=== PATIENT | male | born 1945 | race Caucasian/White ===

== ENCOUNTER → 2016-06-03 | Outpatient (CLI) | payer MEDICARE ==
[2016-05-26 12:47] VITALS: BP 163/82
[~2016-06-03] MED LIST: ASPI-482 PO; INSU100V10 IJ; LOSA50TA6 PO; LOVA20TA2 PO; METF10002 PO; SITA100T PO; TAMS0.4C2 PO
== END | disposition home or self-care (01) ==
LOC: PMGWOUND 08:02
PROVIDERS: ATTEND Emergency Medicine Undersea and Hyperbaric Medicine
DX: E11.621 Type 2 diabetes mellitus with foot ulcer (principal); L97.411 Non-pressure chronic ulcer of right heel and midfoot limited to breakdown of skin; F41.9 Anxiety disorder, unspecified; I10 Essential (primary) hypertension
CPT/HCPCS: 11042

== ENCOUNTER → 2016-06-10 | Outpatient (CLI) | payer MEDICARE ==
[2016-05-26 12:47] VITALS: BP 163/82
== END | disposition home or self-care (01) ==
LOC: PMGWOUND 08:43
PROVIDERS: ATTEND Emergency Medicine Undersea and Hyperbaric Medicine
DX: E11.621 Type 2 diabetes mellitus with foot ulcer (principal); L97.511 Non-pressure chronic ulcer of other part of right foot limited to breakdown of skin; L97.411 Non-pressure chronic ulcer of right heel and midfoot limited to breakdown of skin; F41.9 Anxiety disorder, unspecified; I10 Essential (primary) hypertension
CPT/HCPCS: 11042

== ENCOUNTER → 2016-06-17 | Outpatient (CLI) | payer MEDICARE ==
[2016-05-26 12:47] VITALS: BP 163/82
== END | disposition home or self-care (01) ==
LOC: PMGWOUND 08:49
PROVIDERS: ATTEND Emergency Medicine Undersea and Hyperbaric Medicine
DX: E11.621 Type 2 diabetes mellitus with foot ulcer (principal); L97.411 Non-pressure chronic ulcer of right heel and midfoot limited to breakdown of skin; F41.9 Anxiety disorder, unspecified; I10 Essential (primary) hypertension
CPT/HCPCS: 11042

== ENCOUNTER → 2016-06-24 | Outpatient (CLI) | payer BC, MEDICARE ==
[2016-05-26 12:47] VITALS: BP 163/82
== END | disposition home or self-care (01) ==
LOC: PMGWOUND 08:32
PROVIDERS: ATTEND Preventive Medicine Undersea and Hyperbaric Medicine
DX: E11.621 Type 2 diabetes mellitus with foot ulcer (principal); L97.413 Non-pressure chronic ulcer of right heel and midfoot with necrosis of muscle; I10 Essential (primary) hypertension; F41.9 Anxiety disorder, unspecified
CPT/HCPCS: 97597

== ENCOUNTER → 2016-07-01 | Outpatient (CLI) | payer BC ==
[2016-05-26 12:47] VITALS: BP 163/82
== END | disposition home or self-care (01) ==
LOC: PMGWOUND 08:50
PROVIDERS: ATTEND Emergency Medicine Undersea and Hyperbaric Medicine
DX: E11.621 Type 2 diabetes mellitus with foot ulcer (principal); L97.413 Non-pressure chronic ulcer of right heel and midfoot with necrosis of muscle; I10 Essential (primary) hypertension; F41.9 Anxiety disorder, unspecified
CPT/HCPCS: 11042

== ENCOUNTER → 2016-07-08 | Outpatient (CLI) | payer BC ==
[2016-05-26 12:47] VITALS: BP 163/82
== END | disposition home or self-care (01) ==
LOC: PMGWOUND 08:54
PROVIDERS: ATTEND Emergency Medicine Undersea and Hyperbaric Medicine
DX: E11.621 Type 2 diabetes mellitus with foot ulcer (principal); L97.413 Non-pressure chronic ulcer of right heel and midfoot with necrosis of muscle; I10 Essential (primary) hypertension; F41.9 Anxiety disorder, unspecified
CPT/HCPCS: 11042

== ENCOUNTER → 2016-07-15 | Outpatient (CLI) | payer BC ==
[2016-05-26 12:47] VITALS: BP 163/82
== END | disposition home or self-care (01) ==
LOC: PMGWOUND 08:47
PROVIDERS: ATTEND Emergency Medicine Undersea and Hyperbaric Medicine
DX: E11.621 Type 2 diabetes mellitus with foot ulcer (principal); L97.411 Non-pressure chronic ulcer of right heel and midfoot limited to breakdown of skin; F41.9 Anxiety disorder, unspecified; I10 Essential (primary) hypertension
CPT/HCPCS: 11042

== ENCOUNTER → 2016-07-22 | Outpatient (CLI) | payer BC ==
[2016-05-26 12:47] VITALS: BP 163/82
[~2016-07-22] MED LIST changes: +METF-620 PO; -METF10002 PO
== END | disposition home or self-care (01) ==
LOC: PMGWOUND 08:48
PROVIDERS: ATTEND Emergency Medicine Undersea and Hyperbaric Medicine
DX: E11.621 Type 2 diabetes mellitus with foot ulcer (principal); L97.511 Non-pressure chronic ulcer of other part of right foot limited to breakdown of skin; I10 Essential (primary) hypertension; F41.9 Anxiety disorder, unspecified
CPT/HCPCS: 11042

== ENCOUNTER → 2016-07-29 | Outpatient (CLI) | payer BC ==
[2016-05-26 12:47] VITALS: BP 163/82
== END | disposition home or self-care (01) ==
LOC: PMGWOUND 08:56
PROVIDERS: ATTEND Emergency Medicine Undersea and Hyperbaric Medicine
DX: E11.621 Type 2 diabetes mellitus with foot ulcer (principal); L97.413 Non-pressure chronic ulcer of right heel and midfoot with necrosis of muscle; F41.9 Anxiety disorder, unspecified; I10 Essential (primary) hypertension
CPT/HCPCS: 11042

== ENCOUNTER → 2016-08-05 | Outpatient (CLI) | payer BC, OTHER ==
[2016-05-26 12:47] VITALS: BP 163/82
== END | disposition home or self-care (01) ==
LOC: PMGWOUND 08:47
PROVIDERS: ATTEND Emergency Medicine Undersea and Hyperbaric Medicine
DX: E11.621 Type 2 diabetes mellitus with foot ulcer (principal); L97.413 Non-pressure chronic ulcer of right heel and midfoot with necrosis of muscle; F41.9 Anxiety disorder, unspecified; I10 Essential (primary) hypertension
CPT/HCPCS: 11042

== ENCOUNTER → 2016-08-11 | Outpatient (CLI) | payer BC, OTHER ==
[2016-05-26 12:47] VITALS: BP 163/82
== END | disposition home or self-care (01) ==
LOC: PMGWOUND 08:48
PROVIDERS: ATTEND Preventive Medicine Undersea and Hyperbaric Medicine
DX: E11.621 Type 2 diabetes mellitus with foot ulcer (principal); L97.413 Non-pressure chronic ulcer of right heel and midfoot with necrosis of muscle; F41.9 Anxiety disorder, unspecified; I10 Essential (primary) hypertension
CPT/HCPCS: 97597

== ENCOUNTER → 2016-08-18 | Outpatient (CLI) | payer BC, OTHER ==
[2016-05-26 12:47] VITALS: BP 163/82
== END | disposition home or self-care (01) ==
LOC: PMGWOUND 08:54
PROVIDERS: ATTEND Preventive Medicine Undersea and Hyperbaric Medicine
DX: E11.621 Type 2 diabetes mellitus with foot ulcer (principal); L97.413 Non-pressure chronic ulcer of right heel and midfoot with necrosis of muscle; I10 Essential (primary) hypertension; F41.9 Anxiety disorder, unspecified
CPT/HCPCS: 97597

== ENCOUNTER → 2016-08-25 | Outpatient (CLI) | payer BC, OTHER ==
[2016-05-26 12:47] VITALS: BP 163/82
[~2016-08-25] MED LIST changes: -INSU100V10 IJ; +INSU100V11 IJ
== END | disposition home or self-care (01) ==
LOC: PMGWOUND 07:54
PROVIDERS: ATTEND Preventive Medicine Undersea and Hyperbaric Medicine
DX: E11.621 Type 2 diabetes mellitus with foot ulcer (principal); L97.413 Non-pressure chronic ulcer of right heel and midfoot with necrosis of muscle; F41.9 Anxiety disorder, unspecified; I10 Essential (primary) hypertension
CPT/HCPCS: 97597

== ENCOUNTER → 2016-09-01 | Outpatient (CLI) | payer BC, OTHER ==
[2016-05-26 12:47] VITALS: BP 163/82
== END | disposition home or self-care (01) ==
LOC: PMGWOUND 08:17
PROVIDERS: ATTEND Preventive Medicine Undersea and Hyperbaric Medicine
DX: E11.621 Type 2 diabetes mellitus with foot ulcer (principal); L97.413 Non-pressure chronic ulcer of right heel and midfoot with necrosis of muscle; I10 Essential (primary) hypertension; F41.9 Anxiety disorder, unspecified
CPT/HCPCS: 97597

== ENCOUNTER → 2016-09-08 | Outpatient (CLI) | payer BC, OTHER ==
[2016-05-26 12:47] VITALS: BP 163/82
== END | disposition home or self-care (01) ==
LOC: PMGWOUND 08:22
PROVIDERS: ATTEND Preventive Medicine Undersea and Hyperbaric Medicine
DX: E11.621 Type 2 diabetes mellitus with foot ulcer (principal); L97.511 Non-pressure chronic ulcer of other part of right foot limited to breakdown of skin; F41.9 Anxiety disorder, unspecified; I10 Essential (primary) hypertension
CPT/HCPCS: 97597

== ENCOUNTER → 2016-09-15 | Outpatient (CLI) | payer BC, OTHER ==
[2016-05-26 12:47] VITALS: BP 163/82
== END | disposition home or self-care (01) ==
LOC: PMGWOUND 08:18
PROVIDERS: ATTEND Preventive Medicine Undersea and Hyperbaric Medicine
DX: E11.621 Type 2 diabetes mellitus with foot ulcer (principal); L97.413 Non-pressure chronic ulcer of right heel and midfoot with necrosis of muscle; F41.9 Anxiety disorder, unspecified; I10 Essential (primary) hypertension
CPT/HCPCS: 97597

== ENCOUNTER → 2016-09-29 | Outpatient (CLI) | payer BC, OTHER ==
[2016-05-26 12:47] VITALS: BP 163/82
[~2016-09-29] MED LIST changes: +ONDA4TAB10 SL; +OXYC-323 PO
== END | disposition home or self-care (01) ==
LOC: PMGWOUND 07:44
PROVIDERS: ATTEND Preventive Medicine Undersea and Hyperbaric Medicine
DX: E11.621 Type 2 diabetes mellitus with foot ulcer (principal); L97.413 Non-pressure chronic ulcer of right heel and midfoot with necrosis of muscle; I10 Essential (primary) hypertension; F41.9 Anxiety disorder, unspecified
CPT/HCPCS: 97597

== ENCOUNTER 2016-09-30 17:37 | Inpatient (IN) | payer BC, OTHER ==
[~2016-09-30] VITALS: Ht 167.6 cm; Wt 108.9 kg
[~2016-09-30 17:37] MED LIST changes: -ONDA4TAB10 SL; -OXYC-323 PO
[2016-09-30] MEDS ORDERED: HYDROmorphone 2 MG/ML VIAL IV ONE ×2 (18:15→19:45)
[2016-09-30] MEDS ORDERED: ONDANSETRON PF 4 MG/2 ML VIAL. IV ONE ×2 (18:15→21:45)
[2016-09-30] MEDS ORDERED: IV NORMAL SALINE 500ML BAG 500 ML IV ONE (18:15)
--- NOTE | 2016-09-30 18:20 | PHYS DOC ---
Past Medical History Past Medical History: Diabetes-Type II, High Cholesterol, Hypertension Past Surgical History: Other Additional Past Surgical Histo: R foot Alcohol Use: None Drug Use: None Adult General Chief Complaint Chief Complaint: ABDOMINAL PAIN HPI HPI Patient is a 70 year old male who presents with except for history of upper abdominal pain across his abdomen and perhaps right greater than left, moderate to severe, vomiting 3 clear, no hematemesis, no diarrhea denies chest pain or shortness of breath no alcohol or NSAID use. No prior abdominal surgical history. Insulin-dependent diabetic. Review of Systems Review of Systems Constitutional: Denies fever or chills [] Eyes: Denies change in visual acuity, redness, or eye pain [] HENT: Denies nasal congestion or sore throat [] Respiratory: Denies cough or shortness of breath [] Cardiovascular: No additional information not addressed in HPI [] GI: Denies abdominal pain, nausea, vomiting, bloody stools or diarrhea [] : Denies dysuria or hematuria [] Musculoskeletal: Denies back pain or joint pain [] Integument: Denies rash or skin lesions [] Neurologic: Denies headache, focal weakness or sensory changes [] Endocrine: Denies polyuria or polydipsia [] Current Medications Current Medications Current Medications Medications (Trade) Dose Ordered Sig/Ben Start Time Stop Time Status Last Admin Dose Admin Famotidine (Pepcid) 20 mg 1X ONCE 09/30/16 22:15 09/30/16 22:16 DC Hydromorphone HCl (Dilaudid) 0.5 mg 1X ONCE 09/30/16 19:45 09/30/16 19:46 DC 09/30/16 19:44 0.5 MG Info (Do NOT chart on this entry -- for MONITORING) 1 each PRN DAILY PRN 09/30/16 19:00 10/02/16 18:59 Iohexol (Omnipaque 300 Mg/ml) 75 ml 1X ONCE 09/30/16 19:00 09/30/16 19:01 DC 09/30/16 18:57 75 ML Morphine Sulfate 4 mg PRN Q2HR PRN 09/30/16 22:15 10/01/16 22:14 Ondansetron HCl (Zofran) 4 mg PRN Q8HRS PRN 09/30/16 22:15 10/01/16 22:14 Sodium Chloride 1,000 ml @ 150 mls/hr Q6H40M 09/30/16 22:00 10/01/16 21:59 Allergies Allergies Allergies Coded Allergies Type Severity Reaction Last Updated Verified No Known Drug Allergies 12/29/15 No Physical Exam Physical Exam Constitutional: Well developed, well nourished, no acute distress, non-toxic appearance. [] HENT: Normocephalic, atraumatic, bilateral external ears normal, oropharynx moist, no oral exudates, nose normal. [] Eyes: PERRLA, EOMI, conjunctiva normal, no discharge. [] Neck: Normal range of motion, no tenderness, supple, no stridor. [] Cardiovascular:Heart rate regular rhythm, no murmur [] Lungs & Thorax: Bilateral breath sounds clear to auscultation [] Abdomen: Bowel sounds normal, soft, moderate tenderness across upper abdomen, no masses, no pulsatile masses. [] Skin: Warm, dry, no erythema, no rash. [] Back: No tenderness, no CVA tenderness. [] Extremities: No tenderness, no cyanosis, no clubbing, ROM intact, no edema. [] Neurologic: Alert and oriented X 3, normal motor function, normal sensory function, no focal deficits noted. [] Psychologic: Affect normal, judgement normal, mood normal. [] Current Patient Data Vital Signs Vital Signs Date Time Temp Pulse Resp B/P (MAP) Pulse Ox O2 Delivery O2 Flow Rate FiO2 09/30/16 20:30 66 19 99 09/30/16 19:44 Room Air 09/30/16 19:30 166/87 (113) 09/30/16 18:00 97.8 97.8 Lab Values Laboratory Tests Test 09/30/16 18:32 09/30/16 18:35 09/30/16 19:54 White Blood Count 10.9 x10^3/uL (4.0-11.0) Red Blood Count 3.87 x10^6/uL (4.30-5.70) L Hemoglobin 11.4 g/dL (13.0-17.5) L Hematocrit 33.7 % (39.0-53.0) L Mean Corpuscular Volume 87 fL (79-100) Mean Corpuscular Hemoglobin 29 pg (25-35) Mean Corpuscular Hemoglobin Concent 34 g/dL (31-37) Red Cell Distribution Width 14.4 % (11.5-14.5) Platelet Count 171 x10^3/uL (140-400) Neutrophils (%) (Auto) 84 % (31-73) H Lymphocytes (%) (Auto) 11 % (24-48) L Monocytes (%) (Auto) 4 % (0-9) Eosinophils (%) (Auto) 1 % (0-3) Basophils (%) (Auto) 1 % (0-3) Neutrophils # (Auto) 9.1 x10^3uL (1.8-7.7) H Lymphocytes # (Auto) 1.2 x10^3/uL (1.0-4.8) Monocytes # (Auto) 0.5 x10^3/uL (0.0-1.1) Eosinophils # (Auto) 0.1 x10^3/uL (0.0-0.7) Basophils # (Auto) 0.1 x10^3/uL (0.0-0.2) Sodium Level 142 mmol/L (136-145) Potassium Level 4.5 mmol/L (3.5-5.1) Chloride Level 106 mmol/L (98-107) Carbon Dioxide Level 24 mmol/L (21-32) Anion Gap 12 (6-14) 15 mmol/L (6-14) H Blood Urea Nitrogen 27 mg/dL (8-26) H Creatinine 1.1 mg/dL (0.7-1.3) Estimated GFR (Cockcroft-Gault) 66.2 BUN/Creatinine Ratio 25 (6-20) H Glucose Level 105 mg/dL (70-99) H 99 mg/dL (70-99) Calcium Level 9.6 mg/dL (8.5-10.1) Total Bilirubin 0.5 mg/dL (0.2-1.0) Aspartate Amino Transferase (AST) 40 U/L (15-37) H Alanine Aminotransferase (ALT) 43 U/L (16-63) Alkaline Phosphatase 89 U/L (46-116) Troponin I Quantitative < 0.017 ng/mL (0.000-0.055) Total Protein 7.5 g/dL (6.4-8.2) Albumin 3.8 g/dL (3.4-5.0) Albumin/Globulin Ratio 1.0 (1.0-1.7) Lipase 262 U/L (73-393) POC Hemoglobin 11.9 g/dL (14-18) L POC Hematocrit 35 % (37-52) L POC Sodium 141 mmol/L (135-145) POC Potassium 4.2 mmol/L (3.5-5.0) POC Chloride 108 mmol/L (98-110) POC Total CO2 24 mmol/L (23-32) POC Blood Urea Nitrogen 26 mg/dL (8-26) POC Creatinine 1.2 mg/dL (0.5-1.4) POC Ionized Calcium (Geraldine) 1.24 mmol/L (1.13-1.32) Urine Collection Type Unknown Urine Color Yellow Urine Clarity Turbid Urine pH 5.5 Urine Specific [place] >=1.030 Urine Protein Negative mg/dL (NEG-TRACE) Urine Glucose (UA) Negative mg/dL (NEG) Urine Ketones (Stick) Negative mg/dL (NEG) Urine Blood Moderate (NEG) Urine Nitrite Negative (NEG) Urine Bilirubin Negative (NEG) Urine Urobilinogen Dipstick 0.2 mg/dL (0.2 mg/dL) Urine Leukocyte Esterase Large (NEG) Urine RBC Rare /HPF (0-2) Urine WBC Tntc /HPF (0-4) Urine Bacteria Many /HPF (0-FEW) Urine Mucus Slight /LPF Laboratory Tests 09/30/16 18:32 Laboratory Tests 09/30/16 18:32 09/30/16 18:35 EKG EKG Normal sinus rhythm rate of [address] segment elevation QTC normal mild T-wave inversion in V1 and V2 interpreted by me [] Radiology/Procedures Radiology/Procedures Chest x-ray no acute disease process my interpretation my review. CT abdomen and pelvis positive for gallstones. Per radiology report Ultrasound gallbladder [cholelithiasis no gallbladder wall thickening per radiology report] Course & Med Decision Making Course & Med Decision Making Pertinent Labs and Imaging studies reviewed. (See chart for details) EKG, labs, CT scan abdomen and pelvis, chest x-ray and symptomatic treatment. CT scan and ultrasound showed cholelithiasis no obstruction no wall thickening. Reexam at 8:40 PM patient feels improved I've given him the option to be admitted for surgical consultation and cholecystectomy tomorrow versus following up with his primary care physician in getting an outpatient referral and is preferring to go home. Given him return precautions regarding fever, intractable abdominal pain and jaundice. [ 9:25 PM the patient thought he could manage at home however just prior to leaving the room in the ED started having recurrence of the pain and started throwing up. Therefore we will admit to the hospitalist I will consult the unassigned general surgeon prior to the admission. 9:30 PM: Discussed case with general surgery on-call Dr. Atkins asked that the patient be nothing by mouth and he'll evaluate. 9:50 PM: Discussed case with hospitalist on-call Dr. Ac who agrees to admit the patient. ] Dragon Disclaimer Dragon Disclaimer This electronic medical record was generated, in whole or in part, using a voice recognition dictation system. Departure Departure Impression: Primary Impression: Symptomatic cholelithiasis Additional Impressions: Intractable upper abdominal pain Intractable vomiting with nausea Disposition: ADMITTED INPATIENT Admitting Physician: Parveen Early Condition: IMPROVED Referrals: MICHA CASTAÑEDA (PCP) Patient Instructions: Biliary Colic Scripts Ondansetron (ZOFRAN ODT) 4 Mg Tab.rapdis 1 TAB SL Q8HRS, #8 TAB Prov: CB TRAN MD 09/30/16 Oxycodone/Apap 5-325 (PERCOCET 5-325 MG TABLET) 1 Each Tablet 1 TAB PO PRN Q6HRS Y for PAIN for 7 Days, #20 TAB 0 Refills Prov: CB TRAN MD 09/30/16 Problem Qualifiers CB TRAN MD Sep 30, 2016 18:20
[2016-09-30 18:39] LABS: POTASSIUM ISTAT 4.2 mmol/L (3.5-5.0)
[2016-09-30 18:40] LABS: BASO # 0.1 x10^3/uL (0.0-0.2); BASO % 1 % (0-3); EOS % 1 % (0-3); HEMATOCRIT 33.7 % (39.0-53.0); HEMOGLOBIN 11.4 g/dL (13.0-17.5); LYMPH # 1.2 x10^3/uL (1.0-4.8); LYMPH % 11 % (24-48); MEAN CORPUSCULAR HEMOGLOBIN 29 pg (25-35); MEAN CORPUSCULAR HGB CONC 34 g/dL (31-37); MEAN CORPUSCULAR VOLUME 87 fL (79-100); MONO % 4 % (0-9); NEUT % 84 % (31-73); PLATELET COUNT 171 x10^3/uL (140-400); RED BLOOD COUNT 3.87 x10^6/uL (4.30-5.70); RED CELL DISTRIBUTION WIDTH 14.4 % (11.5-14.5); WHITE BLOOD COUNT 10.9 x10^3/uL (4.0-11.0)
[2016-09-30 18:52] LABS: CALCIUM 9.6 mg/dL (8.5-10.1); CREATININE 1.1 mg/dL (0.7-1.3); GFR 66.2; POTASSIUM 4.5 mmol/L (3.5-5.1)
[2016-09-30 18:57] LABS: ALBUMIN 3.8 g/dL (3.4-5.0); TOTAL BILIRUBIN 0.5 mg/dL (0.2-1.0); TOTAL PROTEIN 7.5 g/dL (6.4-8.2)
[2016-09-30] MEDS ORDERED: IOHEXOL 300 MG/ML 75 ML VIAL IV ONE (19:00)
[2016-09-30] MEDS ORDERED: CONTRAST GIVEN MC PRN (19:00)
--- NOTE | 2016-09-30 19:49 | RAD ---
CT ABDOMEN/PELVIS Indication: sudden onset severe upper abd pain today, [id number] 75ml, prior sent Technique: Multiple contiguous axial images were obtained through the abdomen and pelvis after administration of intravenous iodinated contrast. Coronal and sagittal reformations were created. PQRS STATEMENT One or more of the following in the visualized dose reduction techniques were utilized for this study: 1. Automatic exposure control, 2. Adjustment of the mA and/or kV according to patient size, 3. Use of iterative reconstruction technique Comparison: CT abdomen and pelvis from March 23, 2011 Findings: The heart size is normal. The lung bases are clear. The liver is normal in size with no focal lesion identified. The gallbladder is nondistended and demonstrates some layering gallstones. The pancreas, spleen, and adrenal glands are within normal limits. The kidneys are unremarkable apart from bilateral cortical cysts. The portal vein and SMV are patent. The abdominal aorta is normal in caliber. There is no abdominopelvic ascites or adenopathy. The bowel loops are normal in caliber. The appendix is normal. The urinary bladder is unremarkable. No destructive osseus lesions are identified. Impression: No abdominopelvic ascites or inflammatory mass. Cholelithiasis. Electronically signed by: Delgado Carney MD (09/30/2016 7:46 PM) [facility]
[2016-09-30 19:58] LABS: BILIRUBIN,URINE NEGATIVE (NEG); GLUCOSE,URINE NEGATIVE (NEG); NITRITE,URINE NEGATIVE (NEG); PH,URINE 5.5; PROTEIN,URINE NEGATIVE (NEG-TRACE); UROBILINOGEN,URINE 0.2 mg/dL (0.2 mg/dL)
[2016-09-30 20:07] LABS: BACTERIA,URINE MANY /HPF (0-FEW); RBC,URINE RARE /HPF (0-2); WBC,URINE TNTC /HPF (0-4)
--- NOTE | 2016-09-30 20:32 | RAD ---
Exam: Abdomen ultrasound Indication: pt c/o ruq pain, n/v x 6 hrs< Technique: Multiple realtime grayscale sonographic images were obtained over the abdomen. Static images were submitted for interpretation. Findings: The pancreas is poorly visualized. The IVC is patent. The liver is normal in size measuring 18.2cm. There is a normal hepatic echotexture. No focal lesions are identified. The gallbladder is nondistended and contains cholelithiasis. There is no wall thickening, or pericholecystic fluid. The common bile duct is within normal limits measuring 3 mm in diameter. The Right kidney is normal in size measuring 11.7 x 6.2 x 6.5cm. There is no evidence for mass, nephrolithiasis, or hydronephrosis. No ascites is identified Impression: Cholelithiasis with no evidence for acute cholecystitis. Electronically signed by: Delgado Carney MD (09/30/2016 8:29 PM) [facility]
[2016-09-30] MEDS ORDERED: ONDA4TAB10 SL (20:53)
[2016-09-30] MEDS ORDERED: OXYC-323 PO (20:53)
[2016-09-30] MEDS ORDERED: ONDANSETRON PF 4 MG/2 ML VIAL. IV PRN (22:15)
[2016-09-30] MEDS ORDERED: FAMOTIDINE 20 MG/2 ML VIAL IVP ONE (22:15)
[2016-09-30] MEDS: IV NORMAL SALINE 1000ML BAG 1,000 ML IV SCH (23:24)
[2016-10-01] VITALS (8 sets, daily range): BP systolic 134–164; BP diastolic 58–80
[2016-10-01] MEDS: MORPHINE SULFATE 4 MG/ML DISP.SYRIN. IV PRN ×2 (00:08→03:58)
--- NOTE | 2016-10-01 00:37 | ACF ---
Admission Forms Criteria ABDOMINAL PAIN Clinical Indications for Admission to Inpatient Care (Place 'X' for any and all applicable criteria): Admission is indicated for ANY ONE of the following(1)(2)(3)(4)(5): [X]I. Inpatient admission required rather than observation care (Also use Abdominal Pain: Observation Care, as appropriate) because of ANY ONE of the following: [X]a) Severe pain requiring acute inpatient management [ ]b) Identification of etiology/finding that requires inpatient care (eg, aortic dissection, free air) [ ]c) Absent bowel sounds with complete ileus(6) [ ]d) Suspected toxic megacolon [ ]e) Severe electrolyte abnormalities requiring inpatient care [ ]f) High fever or infection requiring inpatient admission as indicated by ANY ONE of following(7)(8): [ ] i) Appropriate outpatient or observational care antimicrobial treatment unavailable, not effective, or not feasible [ ] ii) Documented bacteremia [ ] iii) Temperature > 104.9 degrees F (oral) [ ] iv) T >103.1 F (oral) or < 96.8 F(rectal) that does not respond to all emergency treatment measures [ ]g) Signs of intestinal obstruction [B] [ ]h) Hemodynamic instability [ ]i) IV fluid to replace significant ongoing losses (greater than 3 L/m2 per day) (12)(13) [ ]j) Percutaneous or open drainage (eg, abscess, biliary tract ) procedures [ ]k) Parenteral nutrition regimen that must be implemented on inpatient basis [ ]l) Other condition,treatment or monitoring requiring inpatient admission. [ ]II. Peritoneal signs present [ ]III. Surgery needed that cannot be performed on an ambulatory basis. [ ]IV. Evaluation requires patient to not eat or drink for extended period ( eg, more than 24 hours). [ ]V. Contraindications and/or Inappropriate clinical situations for Observational Care in patients with abdominal pain, when ANY ONE of the following is required: [ ]a) Thorough evaluation is required to prevent catastrophic events due to delays in diagnosing (e.g.Mesenteric ischemia) 1,3 [ ]b) Patient with severe pathology or with chronic symptoms unlikely to improve in the ED stay (3) [ ]. General contraindications and/or Inappropriate clinical situations for Observational Care in patients with abdominal pain, when ANY ONE of the following is required: [ ]a) Prediction of prolongation of LOS based on ANY ONE of the following may be considered as a contraindication for observational care 2, 3, 4, 5, 6, 7, 8, 9, 10, 11 [ ]i) Age > 65 yrs. [ ]ii) Patient arriving by ambulance [ ]iii) Patient with high acuity [ ]iv) Patient requiring vital sign monitoring [ ]v) Patient on IV medication [ ]b) Systolic blood pressures 180mmHg 3,12 [ ]c) Patient with altered mental status including delirium and other alteration of consciousness, (3) [ ]d) Patient whose discharge disposition will be to a correction home or rehabilitation home should not be managed in Emergency Department Observation Unit. CMS rule requires 3 days hospital stay before such placement.3,13 [ ]e) Patient with failure to thrive due to broad array of etiologies 3,16,17 [ ]f) Inability to ambulate 3,14 Extended stay beyond goal length of stay may be needed for(2)(3): [ ]a) Persistent abdominal pain with suspected intra-abdominal process [ ]b) Diagnosed condition requiring continued stay (e.g., pancreatitis, complicated diverticulitis) [ ]c) Surgery (e.g., colectomy) The original [email or web address] content created by [employer] has been revised. The portions of the content which have been revised are identified through the use of italic text or in bold, and [facility] has neither reviewed nor approved the modified material.All other unmodified content is copyright [email or web address]. Please see references footnoted in the original [email or web address] edition 2016 Admission Criteria Met?: Yes DAVY LOPEZ Oct 01, 2016 00:37
[2016-10-01 05:14] LABS: BASO # 0.1 x10^3/uL (0.0-0.2); BASO % 1 % (0-3); EOS % 0 % (0-3); HEMATOCRIT 35.3 % (39.0-53.0); HEMOGLOBIN 11.4 g/dL (13.0-17.5); LYMPH # 1.1 x10^3/uL (1.0-4.8); LYMPH % 10 % (24-48); MEAN CORPUSCULAR HEMOGLOBIN 28 pg (25-35); MEAN CORPUSCULAR HGB CONC 32 g/dL (31-37); MEAN CORPUSCULAR VOLUME 88 fL (79-100); MONO % 6 % (0-9); NEUT % 83 % (31-73); PLATELET COUNT 164 x10^3/uL (140-400); RED BLOOD COUNT 4.02 x10^6/uL (4.30-5.70); RED CELL DISTRIBUTION WIDTH 14.2 % (11.5-14.5); WHITE BLOOD COUNT 11.3 x10^3/uL (4.0-11.0)
[2016-10-01 05:41] LABS: ALBUMIN 3.5 g/dL (3.4-5.0); ALBUMIN/GLOBULIN RATIO 0.9 (1.0-1.7); CALCIUM 9.4 mg/dL (8.5-10.1); CREATININE 1.1 mg/dL (0.7-1.3); GFR 66.2; POTASSIUM 4.4 mmol/L (3.5-5.1); TOTAL BILIRUBIN 0.7 mg/dL (0.2-1.0); TOTAL PROTEIN 7.5 g/dL (6.4-8.2)
--- NOTE | 2016-10-01 06:40 | EKG ---
[facility] [address] [place] [address] Test Date: 2016-09-30 Test Time: 18:13:40 Pat Name: JESÚS KENNEY Department: Room: 530 1 Gender: M Director Of Enterprise Strategy: : 1945 Requested By: CB TRAN Order Number: [id number] Reading MD: Akanksha Webster Measurements Intervals [place] Rate: 54 P: 0 NM: 102 QRS: 24 QRSD: 76 T: 56 QT: 428 QTc: 408 Interpretive Statements SINUS RHYTHM NORMAL EKG Electronically Signed On 10-03-2016 15:29:58 CDT by Akanksha Webster
[2016-10-01] MEDS ORDERED: BUPIVACAINE-EPI 0.25%-1:200000 50 ML VIAL. ONE (07:30)
--- NOTE | 2016-10-01 07:43 | RAD ---
Chest radiograph 09/30/2016 at 1835 hours Indication: Upper abdominal pain Comparison: Chest radiograph 01/02/2014 Technique: Single frontal portable upright view of the chest is provided. Findings: Cardiomediastinal silhouette is within normal limits. No pleural effusions, pulmonary vascular congestion or pneumothorax. The lungs are clear. Osseous structures are normal. Impression: No acute cardiopulmonary process.
[2016-10-01] MEDS ORDERED: ONDANSETRON PF 4 MG/2 ML VIAL. IV PRN (08:27)
[2016-10-01] MEDS ORDERED: DEXAMETHASONE SOD PHOS 20 MG/5 ML VIAL. ONE (08:29)
[2016-10-01] MEDS ORDERED: fentaNYL PF VIAL 100 MCG/2 ML VIAL ONE ×2 (08:29→10:04)
[2016-10-01] MEDS ORDERED: PROPOFOL 20 ML IV ONE (08:29)
[2016-10-01] MEDS ORDERED: LIDOCAINE 2% PF Vial for OR 5 ML VIAL. ONE (08:29)
[2016-10-01] MEDS ORDERED: DEXTROSE 50% 25 GM / 50ML DISP.SYRIN. IV PRN (08:30)
[2016-10-01] MEDS ORDERED: HYDROcodone/APAP 5/325MG 1 TAB TABLET PO PRN (08:30)
[2016-10-01] MEDS ORDERED: ACETAMINOPHEN 500 MG TABLET PO PRN (08:30)
[2016-10-01] MEDS ORDERED: ROCURONIUM 50 MG/5 ML VIAL. ONE (08:30)
--- NOTE | 2016-10-01 08:47 | PDOC1 ---
History and Physical Date of Admission Date of Admission DATE: 10/01/16 TIME: 08:43 Identification/Chief Complaint Chief Complaint Abd pain with N/V Problems: Source Source: Patient History of Present Illness History of Present Illness 70 yo male with 24 hours of nausea and vomiting and RUQ abdominal pain, which is worse with food. U/S showing gallstones. Past Medical History Cardiovascular: HTN Pulmonary: No pertinent hx GI: No pertinent hx Heme/Onc: No pertinent hx Hepatobiliary: No pertinent hx Psych: No pertinent hx Rheumatologic: No pertinent hx Infectious disease: No pertinent hx ENT: No pertinent hx Renal/: No pertinent hx Endocrine: No pertinent hx Dermatology: No pertinent hx Past Surgical History Past Surgical History: No pertinent history Family History Family History: No Significant Social History Smoke: No ALCOHOL: none Drugs: None Current Problem List Problem List Problems Medical Problems: (1) Intractable upper abdominal pain Status: Acute (2) Intractable vomiting with nausea Status: Acute (3) Symptomatic cholelithiasis Status: Acute Problems: Current Medications Current Medications Current Medications Sodium Chloride 500 ml @ 500 mls/hr 1X ONCE IV Last administered on 18:42; Start 09/30/16 at 18:15; Stop 09/30/16 at 19:14; Status DC Hydromorphone HCl (Dilaudid) 0.5 mg 1X ONCE IV Last administered on 09/30/16 18:43; Start 09/30/16 at 18:15; Stop 09/30/16 at 18:16; Status DC Ondansetron HCl (Zofran) 4 mg 1X ONCE IV Last administered on 09/30/16 18:43 ; Start 09/30/16 at 18:15; Stop 09/30/16 at 18:16; Status DC Iohexol (Omnipaque 300 Mg/ml) 75 ml 1X ONCE IV Last administered on 09/30/16 18:57; Start 09/30/16 at 19:00; Stop 09/30/16 at 19:01; Status DC Info (Do NOT chart on this entry -- for MONITORING) 1 each PRN DAILY PRN MC SEE COMMENTS; Start 09/30/16 at 19:00; Stop 10/02/16 at 18:59 Hydromorphone HCl (Dilaudid) 0.5 mg 1X ONCE IV Last administered on 09/30/16 19:44; Start 09/30/16 at 19:45; Stop 09/30/16 at 19:46; Status DC Ondansetron HCl (Zofran) 4 mg 1X ONCE IV Last administered on 09/30/16 21:41 ; Start 09/30/16 at 21:45; Stop 09/30/16 at 21:46; Status DC Famotidine (Pepcid) 20 mg 1X ONCE IVP Last administered on 09/30/16 22:05; Start 09/30/16 at 22:15; Stop 09/30/16 at 22:16; Status DC Ondansetron HCl (Zofran) 4 mg PRN Q8HRS PRN IV NAUSEA/VOMITING; Start 09/30/16 at 22:15; Stop 10/01/16 at 08:28; Status DC Morphine Sulfate 4 mg PRN Q2HR PRN IV PAIN Last administered on 10/01/16 03:58 ; Start 09/30/16 at 22:15; Stop 10/01/16 at 22:14 Sodium Chloride 1,000 ml @ 150 mls/hr Q6H40M IV Last administered on 23:24; Start 09/30/16 at 22:00; Stop 10/01/16 at 21:59 Ceftriaxone Sodium 1 gm/ Sodium Chloride 50 ml @ 100 mls/hr Q24H IV Last administered on 09/30/16 23:32; Start 09/30/16 at 23:15 Cefazolin Sodium/ Dextrose 50 ml @ 100 mls/hr 1X PREOP IV ; Start 10/01/16 at 06:15; Stop 10/02/16 at 18:00; Status Cancel Bupivacaine HCl/ Epinephrine Bitart (Marcaine-Epi 0.25%-[id number]) 50 ml STK-MED ONCE .ROUTE ; Start 10/01/16 at 07:30; Stop 10/01/16 at 07:31; Status DC Cefazolin Sodium/ Dextrose 50 ml @ 100 mls/hr 1X PREOP PRN IV PER PROTOCOL; Start 10/01/16 at 08:30; Stop 10/02/16 at 08:29 Ondansetron HCl (Zofran) 4 mg PRN Q6HRS PRN IV NAUSEA/VOMITING; Start 10/01/16 at 08:27; Stop 10/02/16 at 08:26 Acetaminophen (Tylenol) 500 mg PRN Q6HRS PRN PO MILD PAIN / TEMP; Start at 08:30 Acetaminophen/ Hydrocodone Bitart (Lortab 5/325) 1 tab PRN Q4HRS PRN PO PAIN; Start 10/01/16 at 08:30 Insulin Aspart (NovoLOG) 0-7 UNITS TIDWMEALS SQ ; Start 10/01/16 at 12:00 Dextrose (Dextrose 50%-Water Syringe) 12.5 gm PRN Q15MIN PRN IV SEE COMMENTS; Start 10/01/16 at 08:30 Dexamethasone Sodium Phosphate (Decadron) 20 mg STK-MED ONCE .ROUTE ; Start at 08:29; Stop 10/01/16 at 08:30; Status DC Propofol 20 ml @ As Directed STK-MED ONCE IV ; Start 10/01/16 at 08:29; Stop at 08:30; Status DC Lidocaine HCl (Lidocaine Pf 2% Vial) 5 ml STK-MED ONCE .ROUTE ; Start 10/01/16 at 08:29; Stop 10/01/16 at 08:30; Status DC Fentanyl Citrate (Fentanyl 2ml Vial) 100 mcg STK-MED ONCE .ROUTE ; Start at 08:29; Stop 10/01/16 at 08:30; Status DC Rocuronium [place] (Zemuron) 50 mg STK-MED ONCE .ROUTE ; Start 10/01/16 at 08:30 ; Stop 10/01/16 at 08:31; Status DC Active Scripts Active Zofran Odt (Ondansetron) 4 Mg Tab.rapdis 1 Tab SL Q8HRS Percocet 5-325 Mg Tablet (Oxycodone/Acetaminophen) 1 Each Tablet 1 Tab PO PRN Q6HRS PRN 7 Days Reported Novolin R (Insulin Regular, Human) 100 Unit/1 Ml Vial 100 Unit IJ Aspir 81 (Aspirin) 81 Mg Tablet.dr 81 Mg PO Januvia (Sitagliptin Phosphate) 100 Mg Tablet 100 Mg PO DAILY Metformin Hcl 1,000 Mg Tablet 1 Tab PO BID Tamsulosin Hcl 0.4 Mg Cap.er.24h 0.4 Mg PO DAILY Lovastatin 20 Mg Tablet 1 Tab PO DAILY Losartan Potassium 50 Mg Tablet 50 Mg PO DAILY Allergies Allergies: Coded Allergies: No Known Drug Allergies (Unverified , 12/29/15) ROS Gastrointestinal: Yes Nausea, Yes Vomiting, Yes Abdominal Pain Physical Exam General: Alert, Oriented X3, Cooperative HEENT: Atraumatic, PERRLA, EOMI Lungs: Clear to auscultation, Normal air movement Heart: RRR, no gallops, no murmurs Abdomen: Normal bowel sounds, Soft, Other (TTP RUQ) Rectal Exam: not examined Extremities: No clubbing, No cyanosis, No edema Skin: No rashes Neuro: Normal speech Psych/Mental Status: Mental status NL Vitals Vitals Vital Signs Date Time Temp Pulse Resp B/P (MAP) Pulse Ox O2 Delivery O2 Flow Rate FiO2 10/01/16 04:28 20 96 10/01/16 03:58 Room Air 10/01/16 03:00 97.9 83 146/80 (102) 97.9 Labs Labs Laboratory Tests Test 09/30/16 18:32 09/30/16 18:35 09/30/16 19:54 10/01/16 03:26 White Blood Count 10.9 x10^3/uL (4.0-11.0) Red Blood Count 3.87 x10^6/uL (4.30-5.70) Hemoglobin 11.4 g/dL (13.0-17.5) Hematocrit 33.7 % (39.0-53.0) Mean Corpuscular Volume 87 fL (79-100) Mean Corpuscular Hemoglobin 29 pg (25-35) Mean Corpuscular Hemoglobin Concent 34 g/dL (31-37) Red Cell Distribution Width 14.4 % (11.5-14.5) Platelet Count 171 x10^3/uL (140-400) Neutrophils (%) (Auto) 84 % (31-73) Lymphocytes (%) (Auto) 11 % (24-48) Monocytes (%) (Auto) 4 % (0-9) Eosinophils (%) (Auto) 1 % (0-3) Basophils (%) (Auto) 1 % (0-3) Neutrophils # (Auto) 9.1 x10^3uL (1.8-7.7) Lymphocytes # (Auto) 1.2 x10^3/uL (1.0-4.8) Monocytes # (Auto) 0.5 x10^3/uL (0.0-1.1) Eosinophils # (Auto) 0.1 x10^3/uL (0.0-0.7) Basophils # (Auto) 0.1 x10^3/uL (0.0-0.2) Sodium Level 142 mmol/L (136-145) Potassium Level 4.5 mmol/L (3.5-5.1) Chloride Level 106 mmol/L (98-107) Carbon Dioxide Level 24 mmol/L (21-32) Anion Gap 12 (6-14) 15 mmol/L (6-14) Blood Urea Nitrogen 27 mg/dL (8-26) Creatinine 1.1 mg/dL (0.7-1.3) Estimated GFR (Cockcroft-Gault) 66.2 BUN/Creatinine Ratio 25 (6-20) Glucose Level 105 mg/dL (70-99) 99 mg/dL (70-99) Calcium Level 9.6 mg/dL (8.5-10.1) Total Bilirubin 0.5 mg/dL (0.2-1.0) Aspartate Amino Transf (AST/SGOT) 40 U/L (15-37) Alanine Aminotransferase (ALT/SGPT) 43 U/L (16-63) Alkaline Phosphatase 89 U/L (46-116) Troponin I Quantitative < 0.017 ng/mL (0.000-0.055) Total Protein 7.5 g/dL (6.4-8.2) Albumin 3.8 g/dL (3.4-5.0) Albumin/Globulin Ratio 1.0 (1.0-1.7) Lipase 262 U/L (73-393) Bedside Hemoglobin 11.9 g/dL (14-18) Bedside Hematocrit 35 % (37-52) Bedside Sodium 141 mmol/L (135-145) Bedside Potassium 4.2 mmol/L (3.5-5.0) Bedside Chloride 108 mmol/L (98-110) Bedside Total CO2 24 mmol/L (23-32) Bedside Blood Urea Nitrogen 26 mg/dL (8-26) Bedside Creatinine 1.2 mg/dL (0.5-1.4) Bedside Ionized Calcium (Geraldine) 1.24 mmol/L (1.13-1.32) Urine Collection Type Unknown Urine Color Yellow Urine Clarity Turbid Urine pH 5.5 Urine Specific [place] >=1.030 Urine Protein Negative mg/dL (NEG-TRACE) Urine Glucose (UA) Negative mg/dL (NEG) Urine Ketones (Stick) Negative mg/dL (NEG) Urine Blood Moderate (NEG) Urine Nitrite Negative (NEG) Urine Bilirubin Negative (NEG) Urine Urobilinogen Dipstick 0.2 mg/dL (0.2 mg/dL) Urine Leukocyte Esterase Large (NEG) Urine RBC Rare /HPF (0-2) Urine WBC Tntc /HPF (0-4) Urine Bacteria Many /HPF (0-FEW) Urine Mucus Slight /LPF Glucose (Fingerstick) 88 mg/dL (70-99) Test 10/01/16 04:00 10/01/16 05:00 10/01/16 07:52 White Blood Count 11.3 x10^3/uL (4.0-11.0) Red Blood Count 4.02 x10^6/uL (4.30-5.70) Hemoglobin 11.4 g/dL (13.0-17.5) Hematocrit 35.3 % (39.0-53.0) Mean Corpuscular Volume 88 fL (79-100) Mean Corpuscular Hemoglobin 28 pg (25-35) Mean Corpuscular Hemoglobin Concent 32 g/dL (31-37) Red Cell Distribution Width 14.2 % (11.5-14.5) Platelet Count 164 x10^3/uL (140-400) Neutrophils (%) (Auto) 83 % (31-73) Lymphocytes (%) (Auto) 10 % (24-48) Monocytes (%) (Auto) 6 % (0-9) Eosinophils (%) (Auto) 0 % (0-3) Basophils (%) (Auto) 1 % (0-3) Neutrophils # (Auto) 9.4 x10^3uL (1.8-7.7) Lymphocytes # (Auto) 1.1 x10^3/uL (1.0-4.8) Monocytes # (Auto) 0.7 x10^3/uL (0.0-1.1) Eosinophils # (Auto) 0.0 x10^3/uL (0.0-0.7) Basophils # (Auto) 0.1 x10^3/uL (0.0-0.2) Sodium Level 142 mmol/L (136-145) Potassium Level 4.4 mmol/L (3.5-5.1) Chloride Level 106 mmol/L (98-107) Carbon Dioxide Level 25 mmol/L (21-32) Anion Gap 11 (6-14) Blood Urea Nitrogen 21 mg/dL (8-26) Creatinine 1.1 mg/dL (0.7-1.3) Estimated GFR (Cockcroft-Gault) 66.2 BUN/Creatinine Ratio 19 (6-20) Glucose Level 93 mg/dL (70-99) Calcium Level 9.4 mg/dL (8.5-10.1) Total Bilirubin 0.7 mg/dL (0.2-1.0) Aspartate Amino Transf (AST/SGOT) 31 U/L (15-37) Alanine Aminotransferase (ALT/SGPT) 36 U/L (16-63) Alkaline Phosphatase 85 U/L (46-116) Total Protein 7.5 g/dL (6.4-8.2) Albumin 3.5 g/dL (3.4-5.0) Albumin/Globulin Ratio 0.9 (1.0-1.7) Glucose (Fingerstick) 116 mg/dL (70-99) Laboratory Tests Test 09/30/16 18:32 09/30/16 18:35 09/30/16 19:54 10/01/16 03:26 White Blood Count 10.9 x10^3/uL (4.0-11.0) Red Blood Count 3.87 x10^6/uL (4.30-5.70) Hemoglobin 11.4 g/dL (13.0-17.5) Hematocrit 33.7 % (39.0-53.0) Mean Corpuscular Volume 87 fL (79-100) Mean Corpuscular Hemoglobin 29 pg (25-35) Mean Corpuscular Hemoglobin Concent 34 g/dL (31-37) Red Cell Distribution Width 14.4 % (11.5-14.5) Platelet Count 171 x10^3/uL (140-400) Neutrophils (%) (Auto) 84 % (31-73) Lymphocytes (%) (Auto) 11 % (24-48) Monocytes (%) (Auto) 4 % (0-9) Eosinophils (%) (Auto) 1 % (0-3) Basophils (%) (Auto) 1 % (0-3) Neutrophils # (Auto) 9.1 x10^3uL (1.8-7.7) Lymphocytes # (Auto) 1.2 x10^3/uL (1.0-4.8) Monocytes # (Auto) 0.5 x10^3/uL (0.0-1.1) Eosinophils # (Auto) 0.1 x10^3/uL (0.0-0.7) Basophils # (Auto) 0.1 x10^3/uL (0.0-0.2) Sodium Level 142 mmol/L (136-145) Potassium Level 4.5 mmol/L (3.5-5.1) Chloride Level 106 mmol/L (98-107) Carbon Dioxide Level 24 mmol/L (21-32) Anion Gap 12 (6-14) 15 mmol/L (6-14) Blood Urea Nitrogen 27 mg/dL (8-26) Creatinine 1.1 mg/dL (0.7-1.3) Estimated GFR (Cockcroft-Gault) 66.2 BUN/Creatinine Ratio 25 (6-20) Glucose Level 105 mg/dL (70-99) 99 mg/dL (70-99) Calcium Level 9.6 mg/dL (8.5-10.1) Total Bilirubin 0.5 mg/dL (0.2-1.0) Aspartate Amino Transf (AST/SGOT) 40 U/L (15-37) Alanine Aminotransferase (ALT/SGPT) 43 U/L (16-63) Alkaline Phosphatase 89 U/L (46-116) Troponin I Quantitative < 0.017 ng/mL (0.000-0.055) Total Protein 7.5 g/dL (6.4-8.2) Albumin 3.8 g/dL (3.4-5.0) Albumin/Globulin Ratio 1.0 (1.0-1.7) Lipase 262 U/L (73-393) Bedside Hemoglobin 11.9 g/dL (14-18) Bedside Hematocrit 35 % (37-52) Bedside Sodium 141 mmol/L (135-145) Bedside Potassium 4.2 mmol/L (3.5-5.0) Bedside Chloride 108 mmol/L (98-110) Bedside Total CO2 24 mmol/L (23-32) Bedside Blood Urea Nitrogen 26 mg/dL (8-26) Bedside Creatinine 1.2 mg/dL (0.5-1.4) Bedside Ionized Calcium (Geraldine) 1.24 mmol/L (1.13-1.32) Urine Collection Type Unknown Urine Color Yellow Urine Clarity Turbid Urine pH 5.5 Urine Specific [place] >=1.030 Urine Protein Negative mg/dL (NEG-TRACE) Urine Glucose (UA) Negative mg/dL (NEG) Urine Ketones (Stick) Negative mg/dL (NEG) Urine Blood Moderate (NEG) Urine Nitrite Negative (NEG) Urine Bilirubin Negative (NEG) Urine Urobilinogen Dipstick 0.2 mg/dL (0.2 mg/dL) Urine Leukocyte Esterase Large (NEG) Urine RBC Rare /HPF (0-2) Urine WBC Tntc /HPF (0-4) Urine Bacteria Many /HPF (0-FEW) Urine Mucus Slight /LPF Glucose (Fingerstick) 88 mg/dL (70-99) Test 10/01/16 04:00 10/01/16 05:00 10/01/16 07:52 White Blood Count 11.3 x10^3/uL (4.0-11.0) Red Blood Count 4.02 x10^6/uL (4.30-5.70) Hemoglobin 11.4 g/dL (13.0-17.5) Hematocrit 35.3 % (39.0-53.0) Mean Corpuscular Volume 88 fL (79-100) Mean Corpuscular Hemoglobin 28 pg (25-35) Mean Corpuscular Hemoglobin Concent 32 g/dL (31-37) Red Cell Distribution Width 14.2 % (11.5-14.5) Platelet Count 164 x10^3/uL (140-400) Neutrophils (%) (Auto) 83 % (31-73) Lymphocytes (%) (Auto) 10 % (24-48) Monocytes (%) (Auto) 6 % (0-9) Eosinophils (%) (Auto) 0 % (0-3) Basophils (%) (Auto) 1 % (0-3) Neutrophils # (Auto) 9.4 x10^3uL (1.8-7.7) Lymphocytes # (Auto) 1.1 x10^3/uL (1.0-4.8) Monocytes # (Auto) 0.7 x10^3/uL (0.0-1.1) Eosinophils # (Auto) 0.0 x10^3/uL (0.0-0.7) Basophils # (Auto) 0.1 x10^3/uL (0.0-0.2) Sodium Level 142 mmol/L (136-145) Potassium Level 4.4 mmol/L (3.5-5.1) Chloride Level 106 mmol/L (98-107) Carbon Dioxide Level 25 mmol/L (21-32) Anion Gap 11 (6-14) Blood Urea Nitrogen 21 mg/dL (8-26) Creatinine 1.1 mg/dL (0.7-1.3) Estimated GFR (Cockcroft-Gault) 66.2 BUN/Creatinine Ratio 19 (6-20) Glucose Level 93 mg/dL (70-99) Calcium Level 9.4 mg/dL (8.5-10.1) Total Bilirubin 0.7 mg/dL (0.2-1.0) Aspartate Amino Transf (AST/SGOT) 31 U/L (15-37) Alanine Aminotransferase (ALT/SGPT) 36 U/L (16-63) Alkaline Phosphatase 85 U/L (46-116) Total Protein 7.5 g/dL (6.4-8.2) Albumin 3.5 g/dL (3.4-5.0) Albumin/Globulin Ratio 0.9 (1.0-1.7) Glucose (Fingerstick) 116 mg/dL (70-99) Images Images as above VTE Prophylaxis Ordered VTE Prophylaxis Devices: Yes VTE Pharmacological Prophylaxi: Contraindicated Assessment/Plan Assessment/Plan Symptomatic cholelithiasis Plan L/S Cholecystectomy MARY JIMENEZ MD Oct 01, 2016 08:47
[2016-10-01] MEDS ORDERED: IV RINGERS,LACTATED 1000ML 1,000 ML IV ONE (09:15)
[2016-10-01] MEDS ORDERED: NEOSTIGMINE METHYLSULFATE 5 MG/5 ML SYRINGE. ONE (09:59)
[2016-10-01] MEDS ORDERED: GLYCOPYRROLATE 1 MG/5 ML VIAL. ONE (09:59)
[2016-10-01] MEDS ORDERED: DESFLURANE 61 TO 120 MINUTES IH ONE (10:14)
--- NOTE | 2016-10-01 10:14 | PDOC1 ---
History and Physical Date of Admission Date of Admission DATE: 10/01/16 TIME: 10:11 Identification/Chief Complaint Chief Complaint abd pain Problems: Source Source: Caregiver, Chart review History of Present Illness History of Present Illness Pt out having OR- lap dmitri As per chart, acute onset R sided abd pain associated with some emesis, NO fevers, CT abd and uS confirm cholelith but no cholecystitis. WBC 11.3 Incidental UTI on UA started on IV rocephin Otherwise, no significant co morbidities Past Medical History Cardiovascular: HTN Pulmonary: No pertinent hx GI: No pertinent hx Heme/Onc: No pertinent hx Hepatobiliary: No pertinent hx Psych: No pertinent hx Rheumatologic: No pertinent hx Infectious disease: No pertinent hx ENT: No pertinent hx Renal/: No pertinent hx Endocrine: No pertinent hx Dermatology: No pertinent hx Past Surgical History Past Surgical History: No pertinent history Family History Family History: No Significant Social History Smoke: No ALCOHOL: none Drugs: None Current Problem List Problem List Problems Medical Problems: (1) Intractable upper abdominal pain Status: Acute (2) Intractable vomiting with nausea Status: Acute (3) Symptomatic cholelithiasis Status: Acute Problems: Current Medications Current Medications Current Medications Sodium Chloride 500 ml @ 500 mls/hr 1X ONCE IV Last administered on 18:42; Start 09/30/16 at 18:15; Stop 09/30/16 at 19:14; Status DC Hydromorphone HCl (Dilaudid) 0.5 mg 1X ONCE IV Last administered on 09/30/16 18:43; Start 09/30/16 at 18:15; Stop 09/30/16 at 18:16; Status DC Ondansetron HCl (Zofran) 4 mg 1X ONCE IV Last administered on 09/30/16 18:43 ; Start 09/30/16 at 18:15; Stop 09/30/16 at 18:16; Status DC Iohexol (Omnipaque 300 Mg/ml) 75 ml 1X ONCE IV Last administered on 09/30/16 18:57; Start 09/30/16 at 19:00; Stop 09/30/16 at 19:01; Status DC Info (Do NOT chart on this entry -- for MONITORING) 1 each PRN DAILY PRN MC SEE COMMENTS; Start 09/30/16 at 19:00; Stop 10/02/16 at 18:59 Hydromorphone HCl (Dilaudid) 0.5 mg 1X ONCE IV Last administered on 09/30/16 19:44; Start 09/30/16 at 19:45; Stop 09/30/16 at 19:46; Status DC Ondansetron HCl (Zofran) 4 mg 1X ONCE IV Last administered on 09/30/16 21:41 ; Start 09/30/16 at 21:45; Stop 09/30/16 at 21:46; Status DC Famotidine (Pepcid) 20 mg 1X ONCE IVP Last administered on 09/30/16 22:05; Start 09/30/16 at 22:15; Stop 09/30/16 at 22:16; Status DC Ondansetron HCl (Zofran) 4 mg PRN Q8HRS PRN IV NAUSEA/VOMITING; Start 09/30/16 at 22:15; Stop 10/01/16 at 08:28; Status DC Morphine Sulfate 4 mg PRN Q2HR PRN IV PAIN Last administered on 10/01/16 03:58 ; Start 09/30/16 at 22:15; Stop 10/01/16 at 22:14 Sodium Chloride 1,000 ml @ 150 mls/hr Q6H40M IV Last administered on 23:24; Start 09/30/16 at 22:00; Stop 10/01/16 at 21:59 Ceftriaxone Sodium 1 gm/ Sodium Chloride 50 ml @ 100 mls/hr Q24H IV Last administered on 09/30/16 23:32; Start 09/30/16 at 23:15 Cefazolin Sodium/ Dextrose 50 ml @ 100 mls/hr 1X PREOP IV ; Start 10/01/16 at 06:15; Stop 10/02/16 at 18:00; Status Cancel Bupivacaine HCl/ Epinephrine Bitart (Marcaine-Epi 0.25%-[id number]) 50 ml STK-MED ONCE .ROUTE Last administered on 10/01/16 09:30; Start 10/01/16 at 07:30; Stop 10/01/16 at 07:31; Status DC Cefazolin Sodium/ Dextrose 50 ml @ 100 mls/hr 1X PREOP PRN IV PER PROTOCOL Last administered on 10/01/16 09:25; Start 10/01/16 at 08:30; Stop 10/02/16 at 08:29 Ondansetron HCl (Zofran) 4 mg PRN Q6HRS PRN IV NAUSEA/VOMITING; Start 10/01/16 at 08:27; Stop 10/02/16 at 08:26 Acetaminophen (Tylenol) 500 mg PRN Q6HRS PRN PO MILD PAIN / TEMP; Start at 08:30 Acetaminophen/ Hydrocodone Bitart (Lortab 5/325) 1 tab PRN Q4HRS PRN PO PAIN; Start 10/01/16 at 08:30 Insulin Aspart (NovoLOG) 0-7 UNITS TIDWMEALS SQ ; Start 10/01/16 at 12:00 Dextrose (Dextrose 50%-Water Syringe) 12.5 gm PRN Q15MIN PRN IV SEE COMMENTS; Start 10/01/16 at 08:30 Dexamethasone Sodium Phosphate (Decadron) 20 mg STK-MED ONCE .ROUTE ; Start at 08:29; Stop 10/01/16 at 08:30; Status DC Propofol 20 ml @ As Directed STK-MED ONCE IV ; Start 10/01/16 at 08:29; Stop at 08:30; Status DC Lidocaine HCl (Lidocaine Pf 2% Vial) 5 ml STK-MED ONCE .ROUTE ; Start 10/01/16 at 08:29; Stop 10/01/16 at 08:30; Status DC Fentanyl Citrate (Fentanyl 2ml Vial) 100 mcg STK-MED ONCE .ROUTE ; Start at 08:29; Stop 10/01/16 at 08:30; Status DC Rocuronium [place] (Zemuron) 50 mg STK-MED ONCE .ROUTE ; Start 10/01/16 at 08:30 ; Stop 10/01/16 at 08:31; Status DC Ringer's Solution 1,000 ml @ 75 mls/hr 1X ONCE IV Last administered on t 09:03; Start 10/01/16 at 09:15; Stop 10/01/16 at 22:34 Glycopyrrolate (Robinul) 1 mg STK-MED ONCE .ROUTE ; Start 10/01/16 at 09:59; Stop 10/01/16 at 10:00; Status DC Neostigmine Methylsulfate 5 mg STK-MED ONCE .ROUTE ; Start 10/01/16 at 09:59; Stop 10/01/16 at 10:00; Status DC Fentanyl Citrate (Fentanyl 2ml Vial) 100 mcg STK-MED ONCE .ROUTE ; Start at 10:04; Stop 10/01/16 at 10:05; Status DC Active Scripts Active Zofran Odt (Ondansetron) 4 Mg Tab.rapdis 1 Tab SL Q8HRS Percocet 5-325 Mg Tablet (Oxycodone/Acetaminophen) 1 Each Tablet 1 Tab PO PRN Q6HRS PRN 7 Days Reported Novolin R (Insulin Regular, Human) 100 Unit/1 Ml Vial 100 Unit IJ Aspir 81 (Aspirin) 81 Mg Tablet.dr 81 Mg PO Januvia (Sitagliptin Phosphate) 100 Mg Tablet 100 Mg PO DAILY Metformin Hcl 1,000 Mg Tablet 1 Tab PO BID Tamsulosin Hcl 0.4 Mg Cap.er.24h 0.4 Mg PO DAILY Lovastatin 20 Mg Tablet 1 Tab PO DAILY Losartan Potassium 50 Mg Tablet 50 Mg PO DAILY Allergies Allergies: Coded Allergies: No Known Drug Allergies (Unverified , 12/29/15) ROS Review of System out having OR Physical Exam Physical Exam out having OR Vitals Vitals Vital Signs Date Time Temp Pulse Resp B/P (MAP) Pulse Ox O2 Delivery O2 Flow Rate FiO2 10/01/16 08:55 98.8 90 17 190/86 96 98.8 10/01/16 07:00 Room Air Labs Labs Laboratory Tests Test 09/30/16 18:32 09/30/16 18:35 09/30/16 19:54 10/01/16 03:26 White Blood Count 10.9 x10^3/uL (4.0-11.0) Red Blood Count 3.87 x10^6/uL (4.30-5.70) Hemoglobin 11.4 g/dL (13.0-17.5) Hematocrit 33.7 % (39.0-53.0) Mean Corpuscular Volume 87 fL (79-100) Mean Corpuscular Hemoglobin 29 pg (25-35) Mean Corpuscular Hemoglobin Concent 34 g/dL (31-37) Red Cell Distribution Width 14.4 % (11.5-14.5) Platelet Count 171 x10^3/uL (140-400) Neutrophils (%) (Auto) 84 % (31-73) Lymphocytes (%) (Auto) 11 % (24-48) Monocytes (%) (Auto) 4 % (0-9) Eosinophils (%) (Auto) 1 % (0-3) Basophils (%) (Auto) 1 % (0-3) Neutrophils # (Auto) 9.1 x10^3uL (1.8-7.7) Lymphocytes # (Auto) 1.2 x10^3/uL (1.0-4.8) Monocytes # (Auto) 0.5 x10^3/uL (0.0-1.1) Eosinophils # (Auto) 0.1 x10^3/uL (0.0-0.7) Basophils # (Auto) 0.1 x10^3/uL (0.0-0.2) Sodium Level 142 mmol/L (136-145) Potassium Level 4.5 mmol/L (3.5-5.1) Chloride Level 106 mmol/L (98-107) Carbon Dioxide Level 24 mmol/L (21-32) Anion Gap 12 (6-14) 15 mmol/L (6-14) Blood Urea Nitrogen 27 mg/dL (8-26) Creatinine 1.1 mg/dL (0.7-1.3) Estimated GFR (Cockcroft-Gault) 66.2 BUN/Creatinine Ratio 25 (6-20) Glucose Level 105 mg/dL (70-99) 99 mg/dL (70-99) Calcium Level 9.6 mg/dL (8.5-10.1) Total Bilirubin 0.5 mg/dL (0.2-1.0) Aspartate Amino Transf (AST/SGOT) 40 U/L (15-37) Alanine Aminotransferase (ALT/SGPT) 43 U/L (16-63) Alkaline Phosphatase 89 U/L (46-116) Troponin I Quantitative < 0.017 ng/mL (0.000-0.055) Total Protein 7.5 g/dL (6.4-8.2) Albumin 3.8 g/dL (3.4-5.0) Albumin/Globulin Ratio 1.0 (1.0-1.7) Lipase 262 U/L (73-393) Bedside Hemoglobin 11.9 g/dL (14-18) Bedside Hematocrit 35 % (37-52) Bedside Sodium 141 mmol/L (135-145) Bedside Potassium 4.2 mmol/L (3.5-5.0) Bedside Chloride 108 mmol/L (98-110) Bedside Total CO2 24 mmol/L (23-32) Bedside Blood Urea Nitrogen 26 mg/dL (8-26) Bedside Creatinine 1.2 mg/dL (0.5-1.4) Bedside Ionized Calcium (Geraldine) 1.24 mmol/L (1.13-1.32) Urine Collection Type Unknown Urine Color Yellow Urine Clarity Turbid Urine pH 5.5 Urine Specific [place] >=1.030 Urine Protein Negative mg/dL (NEG-TRACE) Urine Glucose (UA) Negative mg/dL (NEG) Urine Ketones (Stick) Negative mg/dL (NEG) Urine Blood Moderate (NEG) Urine Nitrite Negative (NEG) Urine Bilirubin Negative (NEG) Urine Urobilinogen Dipstick 0.2 mg/dL (0.2 mg/dL) Urine Leukocyte Esterase Large (NEG) Urine RBC Rare /HPF (0-2) Urine WBC Tntc /HPF (0-4) Urine Bacteria Many /HPF (0-FEW) Urine Mucus Slight /LPF Glucose (Fingerstick) 88 mg/dL (70-99) Test 10/01/16 04:00 10/01/16 05:00 10/01/16 07:52 White Blood Count 11.3 x10^3/uL (4.0-11.0) Red Blood Count 4.02 x10^6/uL (4.30-5.70) Hemoglobin 11.4 g/dL (13.0-17.5) Hematocrit 35.3 % (39.0-53.0) Mean Corpuscular Volume 88 fL (79-100) Mean Corpuscular Hemoglobin 28 pg (25-35) Mean Corpuscular Hemoglobin Concent 32 g/dL (31-37) Red Cell Distribution Width 14.2 % (11.5-14.5) Platelet Count 164 x10^3/uL (140-400) Neutrophils (%) (Auto) 83 % (31-73) Lymphocytes (%) (Auto) 10 % (24-48) Monocytes (%) (Auto) 6 % (0-9) Eosinophils (%) (Auto) 0 % (0-3) Basophils (%) (Auto) 1 % (0-3) Neutrophils # (Auto) 9.4 x10^3uL (1.8-7.7) Lymphocytes # (Auto) 1.1 x10^3/uL (1.0-4.8) Monocytes # (Auto) 0.7 x10^3/uL (0.0-1.1) Eosinophils # (Auto) 0.0 x10^3/uL (0.0-0.7) Basophils # (Auto) 0.1 x10^3/uL (0.0-0.2) Sodium Level 142 mmol/L (136-145) Potassium Level 4.4 mmol/L (3.5-5.1) Chloride Level 106 mmol/L (98-107) Carbon Dioxide Level 25 mmol/L (21-32) Anion Gap 11 (6-14) Blood Urea Nitrogen 21 mg/dL (8-26) Creatinine 1.1 mg/dL (0.7-1.3) Estimated GFR (Cockcroft-Gault) 66.2 BUN/Creatinine Ratio 19 (6-20) Glucose Level 93 mg/dL (70-99) Calcium Level 9.4 mg/dL (8.5-10.1) Total Bilirubin 0.7 mg/dL (0.2-1.0) Aspartate Amino Transf (AST/SGOT) 31 U/L (15-37) Alanine Aminotransferase (ALT/SGPT) 36 U/L (16-63) Alkaline Phosphatase 85 U/L (46-116) Total Protein 7.5 g/dL (6.4-8.2) Albumin 3.5 g/dL (3.4-5.0) Albumin/Globulin Ratio 0.9 (1.0-1.7) Glucose (Fingerstick) 116 mg/dL (70-99) Laboratory Tests Test 09/30/16 18:32 09/30/16 18:35 09/30/16 19:54 10/01/16 03:26 White Blood Count 10.9 x10^3/uL (4.0-11.0) Red Blood Count 3.87 x10^6/uL (4.30-5.70) Hemoglobin 11.4 g/dL (13.0-17.5) Hematocrit 33.7 % (39.0-53.0) Mean Corpuscular Volume 87 fL (79-100) Mean Corpuscular Hemoglobin 29 pg (25-35) Mean Corpuscular Hemoglobin Concent 34 g/dL (31-37) Red Cell Distribution Width 14.4 % (11.5-14.5) Platelet Count 171 x10^3/uL (140-400) Neutrophils (%) (Auto) 84 % (31-73) Lymphocytes (%) (Auto) 11 % (24-48) Monocytes (%) (Auto) 4 % (0-9) Eosinophils (%) (Auto) 1 % (0-3) Basophils (%) (Auto) 1 % (0-3) Neutrophils # (Auto) 9.1 x10^3uL (1.8-7.7) Lymphocytes # (Auto) 1.2 x10^3/uL (1.0-4.8) Monocytes # (Auto) 0.5 x10^3/uL (0.0-1.1) Eosinophils # (Auto) 0.1 x10^3/uL (0.0-0.7) Basophils # (Auto) 0.1 x10^3/uL (0.0-0.2) Sodium Level 142 mmol/L (136-145) Potassium Level 4.5 mmol/L (3.5-5.1) Chloride Level 106 mmol/L (98-107) Carbon Dioxide Level 24 mmol/L (21-32) Anion Gap 12 (6-14) 15 mmol/L (6-14) Blood Urea Nitrogen 27 mg/dL (8-26) Creatinine 1.1 mg/dL (0.7-1.3) Estimated GFR (Cockcroft-Gault) 66.2 BUN/Creatinine Ratio 25 (6-20) Glucose Level 105 mg/dL (70-99) 99 mg/dL (70-99) Calcium Level 9.6 mg/dL (8.5-10.1) Total Bilirubin 0.5 mg/dL (0.2-1.0) Aspartate Amino Transf (AST/SGOT) 40 U/L (15-37) Alanine Aminotransferase (ALT/SGPT) 43 U/L (16-63) Alkaline Phosphatase 89 U/L (46-116) Troponin I Quantitative < 0.017 ng/mL (0.000-0.055) Total Protein 7.5 g/dL (6.4-8.2) Albumin 3.8 g/dL (3.4-5.0) Albumin/Globulin Ratio 1.0 (1.0-1.7) Lipase 262 U/L (73-393) Bedside Hemoglobin 11.9 g/dL (14-18) Bedside Hematocrit 35 % (37-52) Bedside Sodium 141 mmol/L (135-145) Bedside Potassium 4.2 mmol/L (3.5-5.0) Bedside Chloride 108 mmol/L (98-110) Bedside Total CO2 24 mmol/L (23-32) Bedside Blood Urea Nitrogen 26 mg/dL (8-26) Bedside Creatinine 1.2 mg/dL (0.5-1.4) Bedside Ionized Calcium (Geraldine) 1.24 mmol/L (1.13-1.32) Urine Collection Type Unknown Urine Color Yellow Urine Clarity Turbid Urine pH 5.5 Urine Specific [place] >=1.030 Urine Protein Negative mg/dL (NEG-TRACE) Urine Glucose (UA) Negative mg/dL (NEG) Urine Ketones (Stick) Negative mg/dL (NEG) Urine Blood Moderate (NEG) Urine Nitrite Negative (NEG) Urine Bilirubin Negative (NEG) Urine Urobilinogen Dipstick 0.2 mg/dL (0.2 mg/dL) Urine Leukocyte Esterase Large (NEG) Urine RBC Rare /HPF (0-2) Urine WBC Tntc /HPF (0-4) Urine Bacteria Many /HPF (0-FEW) Urine Mucus Slight /LPF Glucose (Fingerstick) 88 mg/dL (70-99) Test 10/01/16 04:00 10/01/16 05:00 10/01/16 07:52 White Blood Count 11.3 x10^3/uL (4.0-11.0) Red Blood Count 4.02 x10^6/uL (4.30-5.70) Hemoglobin 11.4 g/dL (13.0-17.5) Hematocrit 35.3 % (39.0-53.0) Mean Corpuscular Volume 88 fL (79-100) Mean Corpuscular Hemoglobin 28 pg (25-35) Mean Corpuscular Hemoglobin Concent 32 g/dL (31-37) Red Cell Distribution Width 14.2 % (11.5-14.5) Platelet Count 164 x10^3/uL (140-400) Neutrophils (%) (Auto) 83 % (31-73) Lymphocytes (%) (Auto) 10 % (24-48) Monocytes (%) (Auto) 6 % (0-9) Eosinophils (%) (Auto) 0 % (0-3) Basophils (%) (Auto) 1 % (0-3) Neutrophils # (Auto) 9.4 x10^3uL (1.8-7.7) Lymphocytes # (Auto) 1.1 x10^3/uL (1.0-4.8) Monocytes # (Auto) 0.7 x10^3/uL (0.0-1.1) Eosinophils # (Auto) 0.0 x10^3/uL (0.0-0.7) Basophils # (Auto) 0.1 x10^3/uL (0.0-0.2) Sodium Level 142 mmol/L (136-145) Potassium Level 4.4 mmol/L (3.5-5.1) Chloride Level 106 mmol/L (98-107) Carbon Dioxide Level 25 mmol/L (21-32) Anion Gap 11 (6-14) Blood Urea Nitrogen 21 mg/dL (8-26) Creatinine 1.1 mg/dL (0.7-1.3) Estimated GFR (Cockcroft-Gault) 66.2 BUN/Creatinine Ratio 19 (6-20) Glucose Level 93 mg/dL (70-99) Calcium Level 9.4 mg/dL (8.5-10.1) Total Bilirubin 0.7 mg/dL (0.2-1.0) Aspartate Amino Transf (AST/SGOT) 31 U/L (15-37) Alanine Aminotransferase (ALT/SGPT) 36 U/L (16-63) Alkaline Phosphatase 85 U/L (46-116) Total Protein 7.5 g/dL (6.4-8.2) Albumin 3.5 g/dL (3.4-5.0) Albumin/Globulin Ratio 0.9 (1.0-1.7) Glucose (Fingerstick) 116 mg/dL (70-99) VTE Prophylaxis Ordered VTE Prophylaxis Devices: Yes VTE Pharmacological Prophylaxi: Yes Assessment/Plan Assessment/Plan 1. SYmptomatic cholelithiasis 2. SIRS no sepsis 3. Incidental UTI PLAn: Admit Will see pt later -post op Post op labs COnt IV rocpehin' URine cx PT/OT MARION MONTE Y Oct 01, 2016 10:14
--- NOTE | 2016-10-01 10:21 | PDOC4 ---
Operative Note Operative Note Date: 10/01/2016 Preoperative diagnosis: Cholecystitis cholelithiasis Postoperative diagnosis: Same Procedure: Laparoscopic cholecystectomy Surgeon: Wilbert Ayers is a 70-year-old male was met in the hospital with right upper quadrant abdominal pain and nausea vomiting. Ultrasound of the abdomen show gallstones. Procedure of laparoscopic cholecystectomy was explained to the patient in detail all risks and benefits were also discussed including bleeding infection injury to intra-abdominal contents may necessitate open or further operations. Patient seemed to understand and gave both verbal and written consent to have the procedure performed. Patient was taken to the operating room placed in the supine position general anesthesia was initiated once the patient was asleep and intubated his abdomen was prepped and draped usual sterile fashion using ChloraPrep. An area just below the umbilicus was injected with quarter percent Marcaine with epinephrine and incision was made with 11 blade scalpel and a varies needle was placed within the abdomen. A pneumoperitoneum was achieved once this was complete a 11 mm port was placed and a 5 mm scope was placed within the abdomen. The abdomen was inspected no other abnormalities were noted. At this point 3 5mm ports were placed under direct visualization one in the epigastrium 2 in the right upper quadrant. The gallbladder was quite tense and had to be aspirated approximately 30 mL of dark bile the dome of the gallbladder was then grasped and retracted cephalad, the infundibulum of the gallbladder was grasped retracted laterally exposing the triangle of [place]. The triangle was dissected of its adherent tissues with blunt dissection there was quite a bit of inflammatory inflammation in this area the cystic duct was visualized doubly clipped and transected. The cystic artery was then visualized and also clipped and transected. The gallbladder was taken off the liver using hook electrocautery, the bladder was then placed in the Endo Catch bag and removed from the umbilicus. The right upper quadrant was irrigated and suctioned dry hemostasis is deemed to be appropriate and the pneumoperitoneum was reduced. All ports were removed the fascial defect at the umbilicus was closed with a [id number] 0 Vicryl suture and the skin was reapproximated at all port sites with 4 subcuticular Monocryl Mastisol Steri- Strips and Band-Aids were applied as dressings.. Patient was awakened In the operating room taken to recovery in stable condition all sponge instrument needle counts listed as correct. Estimate blood loss 10 mL MARY JIMENEZ MD Oct 01, 2016 10:21
[2016-10-01] MEDS: IV NORMAL SALINE 1000ML BAG 1,000 ML IV SCH ×3 (10:54→18:00)
[2016-10-01] MEDS: INSULIN ASPART 300 UNITS/3 ML INSULN.PEN SQ SCH ×2 (12:33→18:12)
[2016-10-02 07:00] VITALS: BP 132/64
[2016-10-02] MEDS: INSULIN ASPART 300 UNITS/3 ML INSULN.PEN SQ SCH ×2 (08:54→12:27)
[2016-10-02 10:34] VITALS: BP 152/68
[2016-10-02] MEDS ORDERED: CIPR500T94 PO (11:29)
--- NOTE | 2016-10-02 11:31 | PDOC3 ---
Discharge Summary Visit Information Date of Admission: Sep 30, 2016 Date of Discharge: Oct 02, 2016 Admitting Diagnosis Comment: 1. SYmptomatic cholelithiasis 2. SIRS no sepsis 3. Incidental UTI Final Diagnosis Problems Medical Problems: (1) Intractable upper abdominal pain Status: Acute (2) Intractable vomiting with nausea Status: Acute (3) Symptomatic cholelithiasis Status: Acute Brief Hospital Course Allergies Allergies Coded Allergies Type Severity Reaction Last Updated Verified No Known Drug Allergies 12/29/15 No Vital Signs Vital Signs Date Time Temp Pulse Resp B/P (MAP) Pulse Ox O2 Delivery O2 Flow Rate FiO2 10/02/16 10:34 98.5 81 18 152/68 (96) 95 Room Air 98.5 10/01/16 11:01 2 Lab Results Laboratory Tests Test 09/30/16 18:32 09/30/16 18:35 09/30/16 19:54 10/01/16 03:26 White Blood Count 10.9 x10^3/uL (4.0-11.0) Red Blood Count 3.87 x10^6/uL (4.30-5.70) Hemoglobin 11.4 g/dL (13.0-17.5) Hematocrit 33.7 % (39.0-53.0) Mean Corpuscular Volume 87 fL (79-100) Mean Corpuscular Hemoglobin 29 pg (25-35) Mean Corpuscular Hemoglobin Concent 34 g/dL (31-37) Red Cell Distribution Width 14.4 % (11.5-14.5) Platelet Count 171 x10^3/uL (140-400) Neutrophils (%) (Auto) 84 % (31-73) Lymphocytes (%) (Auto) 11 % (24-48) Monocytes (%) (Auto) 4 % (0-9) Eosinophils (%) (Auto) 1 % (0-3) Basophils (%) (Auto) 1 % (0-3) Neutrophils # (Auto) 9.1 x10^3uL (1.8-7.7) Lymphocytes # (Auto) 1.2 x10^3/uL (1.0-4.8) Monocytes # (Auto) 0.5 x10^3/uL (0.0-1.1) Eosinophils # (Auto) 0.1 x10^3/uL (0.0-0.7) Basophils # (Auto) 0.1 x10^3/uL (0.0-0.2) Sodium Level 142 mmol/L (136-145) Potassium Level 4.5 mmol/L (3.5-5.1) Chloride Level 106 mmol/L (98-107) Carbon Dioxide Level 24 mmol/L (21-32) Anion Gap 12 (6-14) 15 mmol/L (6-14) Blood Urea Nitrogen 27 mg/dL (8-26) Creatinine 1.1 mg/dL (0.7-1.3) Estimated GFR (Cockcroft-Gault) 66.2 BUN/Creatinine Ratio 25 (6-20) Glucose Level 105 mg/dL (70-99) 99 mg/dL (70-99) Calcium Level 9.6 mg/dL (8.5-10.1) Total Bilirubin 0.5 mg/dL (0.2-1.0) Aspartate Amino Transf (AST/SGOT) 40 U/L (15-37) Alanine Aminotransferase (ALT/SGPT) 43 U/L (16-63) Alkaline Phosphatase 89 U/L (46-116) Troponin I Quantitative < 0.017 ng/mL (0.000-0.055) Total Protein 7.5 g/dL (6.4-8.2) Albumin 3.8 g/dL (3.4-5.0) Albumin/Globulin Ratio 1.0 (1.0-1.7) Lipase 262 U/L (73-393) Bedside Hemoglobin 11.9 g/dL (14-18) Bedside Hematocrit 35 % (37-52) Bedside Sodium 141 mmol/L (135-145) Bedside Potassium 4.2 mmol/L (3.5-5.0) Bedside Chloride 108 mmol/L (98-110) Bedside Total CO2 24 mmol/L (23-32) Bedside Blood Urea Nitrogen 26 mg/dL (8-26) Bedside Creatinine 1.2 mg/dL (0.5-1.4) Bedside Ionized Calcium (Geraldine) 1.24 mmol/L (1.13-1.32) Urine Collection Type Unknown Urine Color Yellow Urine Clarity Turbid Urine pH 5.5 Urine Specific [place] >=1.030 Urine Protein Negative mg/dL (NEG-TRACE) Urine Glucose (UA) Negative mg/dL (NEG) Urine Ketones (Stick) Negative mg/dL (NEG) Urine Blood Moderate (NEG) Urine Nitrite Negative (NEG) Urine Bilirubin Negative (NEG) Urine Urobilinogen Dipstick 0.2 mg/dL (0.2 mg/dL) Urine Leukocyte Esterase Large (NEG) Urine RBC Rare /HPF (0-2) Urine WBC Tntc /HPF (0-4) Urine Bacteria Many /HPF (0-FEW) Urine Mucus Slight /LPF Glucose (Fingerstick) 88 mg/dL (70-99) Test 10/01/16 04:00 10/01/16 05:00 10/01/16 07:52 10/01/16 10:27 White Blood Count 11.3 x10^3/uL (4.0-11.0) Red Blood Count 4.02 x10^6/uL (4.30-5.70) Hemoglobin 11.4 g/dL (13.0-17.5) Hematocrit 35.3 % (39.0-53.0) Mean Corpuscular Volume 88 fL (79-100) Mean Corpuscular Hemoglobin 28 pg (25-35) Mean Corpuscular Hemoglobin Concent 32 g/dL (31-37) Red Cell Distribution Width 14.2 % (11.5-14.5) Platelet Count 164 x10^3/uL (140-400) Neutrophils (%) (Auto) 83 % (31-73) Lymphocytes (%) (Auto) 10 % (24-48) Monocytes (%) (Auto) 6 % (0-9) Eosinophils (%) (Auto) 0 % (0-3) Basophils (%) (Auto) 1 % (0-3) Neutrophils # (Auto) 9.4 x10^3uL (1.8-7.7) Lymphocytes # (Auto) 1.1 x10^3/uL (1.0-4.8) Monocytes # (Auto) 0.7 x10^3/uL (0.0-1.1) Eosinophils # (Auto) 0.0 x10^3/uL (0.0-0.7) Basophils # (Auto) 0.1 x10^3/uL (0.0-0.2) Sodium Level 142 mmol/L (136-145) Potassium Level 4.4 mmol/L (3.5-5.1) Chloride Level 106 mmol/L (98-107) Carbon Dioxide Level 25 mmol/L (21-32) Anion Gap 11 (6-14) Blood Urea Nitrogen 21 mg/dL (8-26) Creatinine 1.1 mg/dL (0.7-1.3) Estimated GFR (Cockcroft-Gault) 66.2 BUN/Creatinine Ratio 19 (6-20) Glucose Level 93 mg/dL (70-99) Calcium Level 9.4 mg/dL (8.5-10.1) Total Bilirubin 0.7 mg/dL (0.2-1.0) Aspartate Amino Transf (AST/SGOT) 31 U/L (15-37) Alanine Aminotransferase (ALT/SGPT) 36 U/L (16-63) Alkaline Phosphatase 85 U/L (46-116) Total Protein 7.5 g/dL (6.4-8.2) Albumin 3.5 g/dL (3.4-5.0) Albumin/Globulin Ratio 0.9 (1.0-1.7) Glucose (Fingerstick) 116 mg/dL (70-99) 146 mg/dL (70-99) Test 10/01/16 12:04 10/01/16 17:05 10/01/16 21:00 10/02/16 06:55 Glucose (Fingerstick) 174 mg/dL (70-99) 281 mg/dL (70-99) 276 mg/dL (70-99) 196 mg/dL (70-99) Laboratory Tests Test 10/01/16 12:04 10/01/16 17:05 10/01/16 21:00 10/02/16 06:55 Glucose (Fingerstick) 174 mg/dL (70-99) 281 mg/dL (70-99) 276 mg/dL (70-99) 196 mg/dL (70-99) Brief Hospital Course Mr. Ayers is a 70 old male admitted for symptomatic cholelithiasis, Underwent lap dmitri, tolerated proc well,. Incidental UTI< no allergies, I am dcing on PO cipro and po percocet Ff uo GS 2 weeks as OP post op Dw pt and RN Pt seen and examined HAd some concerns at home bec he takes care of his with CVA and doubts he can do that now - counselling provided, PCP can arrange for HH. Discharge Information Condition at Discharge: Improved, Stable Follow Up: Weeks (2 weeks GS) Disposition/Orders: D/C to Home Scheduled Losartan Potassium (Losartan Potassium), 50 MG PO DAILY, (Reported) Lovastatin (Lovastatin), 1 TAB PO DAILY, (Reported) Metformin Hcl (Metformin Hcl), 1 TAB PO BID, (Reported) Ondansetron (Zofran Odt), 1 TAB SL Q8HRS Sitagliptin Phosphate (Januvia), 100 MG PO DAILY, (Reported) Tamsulosin Hcl (Tamsulosin Hcl), 0.4 MG PO DAILY, (Reported) Scheduled PRN Oxycodone/Apap 5-325 (Percocet 5-325 Mg Tablet), 1 TAB PO PRN Q6HRS PRN for PAIN Miscellaneous Medications Aspirin (Aspir 81), 81 MG PO, (Reported) Insulin Regular, Human (Novolin R), 100 UNIT IJ, (Reported) MARION MONTE MD Oct 02, 2016 11:31
--- NOTE | 2016-10-02 18:14 | PDOC ---
Provider Note Provider Note i saw him prior to dc and he was well. wanted to go home abd soft nd approp tender agree with dc. MERCEDES SANTOS MD Oct 02, 2016 18:14
--- NOTE | 2016-10-04 14:46 | PATHOLOGY ---
PATHOLOGY REPORT * * * * * * * * FINAL DIAGNOSIS: Gallbladder, cholecystectomy: - Acute and chronic cholecystitis. - Cholelithiasis. (SKM:violet; 10/04/2016) REPORT ELECTRONICALLY SIGNED BY: Joanne Soto M.D. DATE/TIME: 10/04/2016 14:45 * * * * * * * * GROSS PATHOLOGY: Received in formalin labeled "Johnnie Ayers, gallbladder and contents," is a 5.5 x 3.8 x 2.1 cm, previously opened/torn gallbladder with diaz-foley and shaggy serosal surfaces. Opening the gallbladder reveals velvety and light brown mucosa with overlying light green areas and an average wall thickness of 0.1 cm. Multiple dark green, multifaceted calculi are present and no masses are noted grossly. Radio Engineer sections from the body and fundus are submitted along with the proximal margin in cassette A1. (KAH; 10/02/2016) INITIAL CPT CODE(S): A; 76924 Professional services performed by [facility] [address] Technical services performed by [facility] at [address] [place] [address] [address], [place] [address]. SPECIMEN(S) RECEIVED: A.Gallbladder and contents CLINICAL HISTORY: None provided PATIENT: JOHNNIE AYERS /AGE: 9 1945 (Age: 70) PATIENT #: [id number] ALT CASE #: SPECIMEN COLLECTION DATE: 10/01/2016 SPECIMEN RECEIVED DATE: 10/01/2016 [facility] - [address] [place] [address] - PHONE: [phone] * * * END OF REPORT * * *
== END 2016-10-02 14:45 | disposition home or self-care (01) | DRG 418 ==
LOC: ER 17:37 → 5 NORTH 21:50
PROVIDERS: ADMIT Internal Medicine; ATTEND Internal Medicine
PROC: 0FT44ZZ Resection of Gallbladder, Percutaneous Endoscopic Approach (ICD-10-PCS; principal; 2016-10-01 10:00)
DX: K80.10 Calculus of gallbladder with chronic cholecystitis without obstruction (principal); N39.0 Urinary tract infection, site not specified; R65.10 Systemic inflammatory response syndrome (SIRS) of non-infectious origin without acute organ dysfunction; E11.9 Type 2 diabetes mellitus without complications; E78.00 Pure hypercholesterolemia, unspecified; I10 Essential (primary) hypertension; Z82.3 Family history of stroke
CPT/HCPCS: 36415; 71010; 74177; 76705; 80047; 80053; 81001; 82962; 83690; 84484; 85027; 87086; 87186; 88304; 93005; 96361; 96374; 96375; 96376; A6539; J0690; J0696; J1100; J1170; J1815; J2001; J2270; J2405; J2704; J2710; J3010; J3490; J7030; J7040; J7120; Q9967; S0028; 99285-25

== ENCOUNTER → 2016-10-13 | Outpatient (CLI) | payer BC, OTHER ==
[2016-10-02 10:34] VITALS: BP 152/68
[~2016-10-13] MED LIST changes: +CIPR500T94 PO; +ONDA4TAB10 SL; +OXYC-323 PO
== END | disposition home or self-care (01) ==
LOC: PMGWOUND 08:30
PROVIDERS: ATTEND Preventive Medicine Undersea and Hyperbaric Medicine
DX: E11.621 Type 2 diabetes mellitus with foot ulcer (principal); L97.413 Non-pressure chronic ulcer of right heel and midfoot with necrosis of muscle; F41.9 Anxiety disorder, unspecified; I10 Essential (primary) hypertension; E78.00 Pure hypercholesterolemia, unspecified
CPT/HCPCS: 97597

== ENCOUNTER → 2016-10-20 | Outpatient (CLI) | payer BC, OTHER ==
[2016-10-02 10:34] VITALS: BP 152/68
== END | disposition home or self-care (01) ==
LOC: PMGWOUND 08:22
PROVIDERS: ATTEND Preventive Medicine Undersea and Hyperbaric Medicine
DX: E11.621 Type 2 diabetes mellitus with foot ulcer (principal); L97.413 Non-pressure chronic ulcer of right heel and midfoot with necrosis of muscle; F41.9 Anxiety disorder, unspecified; I10 Essential (primary) hypertension; E78.00 Pure hypercholesterolemia, unspecified
CPT/HCPCS: 11042

== ENCOUNTER → 2016-11-03 | Outpatient (CLI) | payer BC, OTHER | END | disposition home or self-care (01) | LOC: PMGWOUND 08:19 | PROVIDERS: ATTEND Preventive Medicine Undersea and Hyperbaric Medicine | DX: E11.621 Type 2 diabetes mellitus with foot ulcer (principal); L97.413 Non-pressure chronic ulcer of right heel and midfoot with necrosis of muscle; F41.9 Anxiety disorder, unspecified; I10 Essential (primary) hypertension; E78.00 Pure hypercholesterolemia, unspecified | CPT/HCPCS: 97597 ==

== ENCOUNTER → 2016-11-17 | Outpatient (CLI) | payer BC, OTHER | END | disposition home or self-care (01) | LOC: PMGWOUND 08:23 | PROVIDERS: ATTEND Preventive Medicine Undersea and Hyperbaric Medicine | DX: E11.621 Type 2 diabetes mellitus with foot ulcer (principal); L97.413 Non-pressure chronic ulcer of right heel and midfoot with necrosis of muscle; F41.9 Anxiety disorder, unspecified; I10 Essential (primary) hypertension; E78.00 Pure hypercholesterolemia, unspecified | CPT/HCPCS: 97597 ==

== ENCOUNTER → 2016-12-01 | Outpatient (CLI) | payer BC, OTHER | END | disposition home or self-care (01) | LOC: PMGWOUND 08:40 | PROVIDERS: ATTEND Preventive Medicine Undersea and Hyperbaric Medicine | DX: E11.621 Type 2 diabetes mellitus with foot ulcer (principal); L97.413 Non-pressure chronic ulcer of right heel and midfoot with necrosis of muscle; F41.9 Anxiety disorder, unspecified; I10 Essential (primary) hypertension; E78.00 Pure hypercholesterolemia, unspecified | CPT/HCPCS: 97597 ==

== ENCOUNTER → 2016-12-15 | Outpatient (CLI) | payer BC, OTHER | END | disposition home or self-care (01) | LOC: PMGWOUND 08:30 | PROVIDERS: ATTEND Preventive Medicine Undersea and Hyperbaric Medicine | DX: E11.621 Type 2 diabetes mellitus with foot ulcer (principal); L97.413 Non-pressure chronic ulcer of right heel and midfoot with necrosis of muscle; I10 Essential (primary) hypertension; E78.00 Pure hypercholesterolemia, unspecified; F41.9 Anxiety disorder, unspecified | CPT/HCPCS: 99214 ==

== ENCOUNTER → 2016-12-29 | Outpatient (CLI) | payer BC, OTHER | END | disposition home or self-care (01) | LOC: PMGWOUND 07:42 | PROVIDERS: ATTEND Preventive Medicine Undersea and Hyperbaric Medicine | DX: E11.621 Type 2 diabetes mellitus with foot ulcer (principal); L97.413 Non-pressure chronic ulcer of right heel and midfoot with necrosis of muscle; F41.9 Anxiety disorder, unspecified; I10 Essential (primary) hypertension | CPT/HCPCS: 97597 ==

== ENCOUNTER → 2017-01-12 | Outpatient (CLI) | payer BC, OTHER | END | disposition home or self-care (01) | LOC: PMGWOUND 09:55 | PROVIDERS: ATTEND Preventive Medicine Undersea and Hyperbaric Medicine | DX: E11.621 Type 2 diabetes mellitus with foot ulcer (principal); L97.413 Non-pressure chronic ulcer of right heel and midfoot with necrosis of muscle; F41.9 Anxiety disorder, unspecified; I10 Essential (primary) hypertension; E78.00 Pure hypercholesterolemia, unspecified | CPT/HCPCS: 29445 ==

== ENCOUNTER → 2017-01-14 | Outpatient (CLI) | payer BC, OTHER | END | disposition home or self-care (01) | LOC: PMGWOUND 09:12 | PROVIDERS: ATTEND Preventive Medicine Undersea and Hyperbaric Medicine | DX: E11.621 Type 2 diabetes mellitus with foot ulcer (principal); L97.413 Non-pressure chronic ulcer of right heel and midfoot with necrosis of muscle; F41.9 Anxiety disorder, unspecified; I10 Essential (primary) hypertension; E78.00 Pure hypercholesterolemia, unspecified | CPT/HCPCS: 29445 ==

== ENCOUNTER 2019-11-13 11:54 | Inpatient (IN) | payer MEDICARE ==
[~2019-11-13] VITALS: Ht 165.1 cm; Wt 107.4 kg
[~2019-11-13 11:54] MED LIST changes: +LOSA-73 PO; -LOSA50TA6 PO; +MECL12.573 PO; -METF-620 PO; +METF10007 PO; -OXYC-323 PO; +OXYC1TAB15 PO
[2019-11-13] MEDS ORDERED: DEXTROSE 50% 25 GM / 50ML DISP.SYRIN. IV PRN (13:15)
[2019-11-13] MEDS ORDERED: CYCL10TA2 PO (13:23)
[2019-11-13] MEDS ORDERED: ZOST1940 SQ (13:23)
[2019-11-13] MEDS ORDERED: LOVA20TA2 PO (13:23)
[2019-11-13] MEDS ORDERED: ACET325T21 PO (13:23)
[2019-11-13] MEDS ORDERED: SITA100T PO (13:23)
[2019-11-13] MEDS ORDERED: INSU100I13 SQ (13:23)
[2019-11-13] MEDS ORDERED: AMOX1TAB58 PO (13:23)
[2019-11-13] MEDS ORDERED: NPH,100V5 SQ (13:23)
[2019-11-13 13:45] LABS: HEMATOCRIT 30.8 % (39.0-53.0); HEMOGLOBIN 10.2 g/dL (13.0-17.5); RED BLOOD COUNT 3.62 x10^6/uL (4.30-5.70); RED CELL DISTRIBUTION WIDTH 13.8 % (11.5-14.5)
--- NOTE | 2019-11-13 13:48 | RAD ---
Single AP view of the chest. Comparison: 06/22/2019. Indication: Shortness of breath Findings: The heart is enlarged but stable. There is no pneumothorax or effusion. No air space or interstitial disease. Impression: 1. No acute cardiopulmonary process. Electronically signed by: Yimi Ramos MD (11/13/2019 1:45 PM) [id number]
[2019-11-13 13:56] VITALS: BP 152/67
[2019-11-13] MEDS ORDERED: INSULIN LISPRO 300 UNITS/3 ML VIAL. SQ SCH (14:00)
[2019-11-13 14:03] LABS: ALBUMIN 3.4 g/dL (3.4-5.0); ALBUMIN/GLOBULIN RATIO 0.8 (1.0-1.7); CALCIUM 9.3 mg/dL (8.5-10.1); CREATININE 1.4 mg/dL (0.7-1.3); GFR 49.7; POTASSIUM 4.6 mmol/L (3.5-5.1); TOTAL BILIRUBIN 1.2 mg/dL (0.2-1.0); TOTAL PROTEIN 7.5 g/dL (6.4-8.2)
[2019-11-13] MEDS ORDERED: MECLIZINE HCL 12.5 MG TABLET. PO PRN (14:30)
[2019-11-13] MEDS ORDERED: ACETAMINOPHEN 325 MG TABLET. PO PRN (14:30)
[2019-11-13] MEDS ORDERED: ASPIRIN 325 MG TABLET PO ONE (14:30)
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
[2019-11-13] MEDS: ASPIRIN ENTERIC COATED 81 MG TABLET.DR. PO SCH (15:00)
[2019-11-13 15:05] VITALS: BP 146/81
[2019-11-13] MEDS: CYCLOBENZAPRINE 10 MG TABLET. PO SCH (16:00)
[2019-11-13] MEDS: LINAGLIPTIN 5 MG TABLET PO SCH (16:00)
[2019-11-13] MEDS: TAMSULOSIN 0.4 MG CAP.ER.24H. PO SCH (16:00)
[2019-11-13] MEDS: LOSARTAN POTASSIUM 50 MG TABLET. PO SCH (16:00)
[2019-11-13] MEDS: INSULIN LISPRO 300 UNITS/3 ML VIAL. SQ SCH (17:34)
--- NOTE | 2019-11-13 18:29 | EKG ---
[facility] [address] [place] [address] Test Date: 2019-11-13 Test Time: 16:52:50 Pat Name: JESÚS KENNEY Department: Room: 3 1 Gender: M Manager Inventory: MILKA : 1945 Requested By: KEARA HINSON Order Number: [id number] Reading MD: Measurements Intervals [place] Rate: 74 P: -37 [place]: 136 QRS: 30 QRSD: 98 T: 124 QT: 406 QTc: 456 Interpretive Statements SINUS RHYTHM ATRIAL PREMATURE COMPLEX(ES) ST & T ABNORMALITY, CONSIDER ANTEROLATERAL ISCHEMIA OR LEFT VENTRICULAR STRAIN ABNORMAL ECG RI6.02 Compared to ECG 06/22/2019 20:51:11 T-wave abnormality now present Possible ischemia now present
--- NOTE | 2019-11-13 18:36 | PDOC ---
Provider Note Provider Note Pt seen.H&P dictated.#[id number]. KEARA HINSON MD Nov 13, 2019 18:36
[2019-11-13 19:00] VITALS: BP 111/53
[2019-11-13] MEDS: IV NORMAL SALINE 1000ML BAG 1,000 ML IV SCH (19:21)
--- NOTE | 2019-11-13 20:08 | HP ---
ADMIT DATE: 11/13/2019 MEDICAL HISTORY AND PHYSICAL LOCATION: 3. REASON FOR ADMISSION TO THE HOSPITAL: Shortness of breath. HISTORY OF PRESENT ILLNESS: The patient is a diabetic, also has some COVID symptoms including nausea, vomiting, does not feel good and fatigued. The patient traveled out of [place] recently. HISTORY OF PRESENT ILLNESS: The patient is a 73-year-old male, patient of Dr. Farley, seen me in the office today. He was complaining of short of breath, tired. Denies any chest pain. He has been extremely tired and short of breath, more than usual. He has been out of city from [place], he and his travelled. He has history of diabetes, insulin-dependent. Denies any history of previous cardiac problems. PAST MEDICAL HISTORY: Hypertension, cholesterol, chronic kidney disease, diabetes. PAST SURGICAL HISTORY: Gallbladder surgery, toe amputation as a child. FAMILY HISTORY: Positive for diabetes, cancer, hypertension. SOCIAL HISTORY: Denies smoking, alcohol, or drug abuse. ALLERGIES: No known allergies. MEDICATIONS AT HOME: The patient is on lot of medications; metformin 1000 mg twice a day, Tylenol, aspirin 81 mg daily, cyclobenzaprine 10 mg daily, insulin Lantus, losartan 50 mg daily, lovastatin 20 mg daily, meclizine 25 mg q.6 hours, NPH 38 units twice a day, Januvia 100 mg daily, Flomax 0.4 daily. REVIEW OF SYSTEMS: Denies any chest pain, shortness of breath, feeling tired, had some gastric stomach upset. PHYSICAL EXAMINATION: VITAL SIGNS: At the time of admission shows a temperature 98, pulse 78, respirations 20, blood pressure 152/67, 95 on room air. HEENT: Head is atraumatic. Pupils equal. Oral cavity: No congestion. NECK: Supple. Thyroid not enlarged. JVD not elevated. CHEST: Symmetrical. CARDIOVASCULAR: S1, S2. LUNGS: Reveal few crackles at the bases. ABDOMEN: Soft, bowel sounds present, no mass palpable. EXTERNAL GENITALIA: No English. RECTAL: Deferred. EXTREMITIES: No calf tenderness or edema. Pulses 1+. NEUROLOGIC: Moving all extremities. No focal deficits noted. LABORATORY DATA: Shows a white count 7, hemoglobin 10, platelets 163. Electrolytes show sodium 139, potassium 4.6, chloride 105, bicarbonate 25, BUN 17, creatinine 1.4, glucose 263, bilirubin 1.2. LFTs were normal. Troponin 1.89. TSH was normal. Had a chest x-ray, no acute process. EKG done, report is pending. FINAL IMPRESSION: 1. Shortness of breath. 2. Diabetes. 3. Rule out silent myocardial infarction. 4. Some other symptoms of COVID. 5. Hypertension. 6. Hyperlipidemia. PLAN: At this time, the patient is admitted to the hospital. COVID test. Serial cardiac enzymes, EKG, echocardiogram, Cardiology consult, probably a stress test down the road and see how he does. KEARA HINSON MD DR: ADDY/yasmeen JOB#: [id number] / [id number]
[2019-11-13] MEDS ORDERED: INSULIN GLARGINE SYRINGE. SQ SCH (21:00)
[2019-11-13] MEDS ORDERED: ATORVASTATIN CALCIUM 10 MG TABLET. PO SCH (21:00)
[2019-11-13] MEDS: INSULIN GLARGINE SYRINGE. SQ SCH (22:54)
[2019-11-13 23:00] VITALS: BP 135/65
[2019-11-14] VITALS (19 sets, daily range): BP systolic 108–154; BP diastolic 57–84
[2019-11-14 01:16] LABS: BASO # 0.1 x10^3/uL (0.0-0.2); BASO % 1 % (0-3); EOS # 0.2 x10^3/uL (0.0-0.7); EOS % 4 % (0-3); HEMATOCRIT 28.4 % (39.0-53.0); HEMOGLOBIN 9.3 g/dL (13.0-17.5); LYMPH # 1.2 x10^3/uL (1.0-4.8); LYMPH % 25 % (24-48); MEAN CORPUSCULAR HEMOGLOBIN 28 pg (25-35); MEAN CORPUSCULAR HGB CONC 33 g/dL (31-37); MEAN CORPUSCULAR VOLUME 85 fL (79-100); MONO # 0.5 x10^3/uL (0.0-1.1); MONO % 10 % (0-9); NEUT % 60 % (31-73); PLATELET COUNT 149 x10^3/uL (140-400); RED BLOOD COUNT 3.36 x10^6/uL (4.30-5.70); RED CELL DISTRIBUTION WIDTH 13.9 % (11.5-14.5)
--- NOTE | 2019-11-14 01:24 | NUR ---
PT TROPONIN ELEVATED DR OWEN NOTIFIED NEW GIVEN WILL CONT TO MONITOR PT STATUS AND SAFETY. PMRN
[2019-11-14 01:35] LABS: CALCIUM 8.6 mg/dL (8.5-10.1); CREATININE 1.4 mg/dL (0.7-1.3); GFR 49.7; POTASSIUM 3.7 mmol/L (3.5-5.1)
[2019-11-14 06:30] LABS: CHOLESTEROL/HDL RATIO 5.7
[2019-11-14] MEDS: INSULIN LISPRO 300 UNITS/3 ML VIAL. SQ SCH ×3 (08:00→17:00)
[2019-11-14] MEDS ORDERED: [UNRECOGNIZED DRUG - OTHER] SQ SCH (08:00)
[2019-11-14] MEDS: TAMSULOSIN 0.4 MG CAP.ER.24H. PO SCH (09:05)
[2019-11-14] MEDS: ASPIRIN ENTERIC COATED 81 MG TABLET.DR. PO SCH (09:05)
[2019-11-14] MEDS: LINAGLIPTIN 5 MG TABLET PO SCH (09:05)
[2019-11-14] MEDS: LOSARTAN POTASSIUM 50 MG TABLET. PO SCH (09:06)
[2019-11-14] MEDS: CYCLOBENZAPRINE 10 MG TABLET. PO SCH (09:06)
[2019-11-14] MEDS: INSULIN GLARGINE SYRINGE. SQ SCH ×2 (09:07→21:00)
--- NOTE | 2019-11-14 10:19 | CONS ---
DATE OF CONSULTATION: PULMONARY CONSULTATION ATTENDING PHYSICIAN: Anthony Williamson MD REASON FOR CONSULTATION: Dizziness and dyspnea. HISTORY OF PRESENT ILLNESS: The patient is a 73-year-old male who has no significant tobacco history. He presented to the hospital with feeling lightheaded and weak. He had no chest pain. He did not have any syncopal episode, had some mild shortness of breath. He has no significant cough, fever or chills. No COVID exposure. His chest x-ray showed faint interstitial prominence at the bases. Otherwise, no definite consolidation seen. He has no history of deep vein thrombosis or pulmonary embolism. He is not on home oxygen. I have been asked to see him for further evaluation. PAST MEDICAL HISTORY: Showed hypertension, dyslipidemia, CKD. PAST SURGICAL HISTORY: Cholecystectomy, toe amputation as a child. FAMILY HISTORY: Diabetes, cancer and hypertension. SOCIAL HISTORY: Nonsmoker, nonalcoholic. ALLERGIES: None. MEDICATIONS: Reviewed as listed in the MRAD including Lovenox full dose. REVIEW OF SYSTEMS: Ten-point system obtained. Pertinent positives discussed in my history of present illness, otherwise noncontributory. All systems that were negative were reviewed as well. PHYSICAL EXAMINATION: VITAL SIGNS: Reviewed. Blood pressure 111 systolic to 127 systolic. Pulse ox 96% on room air. He is afebrile. GENERAL: Visual exam done due to COVID-19 suspicion. No obvious respiratory distress. EXTREMITIES: Trace pitting edema. LABORATORY DATA: Reviewed. BUN 18, creatinine 1.4. D-dimer only 0.5. IMPRESSION: 1. Dizziness with mild subjective dyspnea. Suspect cardiac etiology/NSTMI Currently on room air. Chest x-ray with only faint mildly prominent interstitial markings at the bases. D-dimer is only 0.5 and low suspicion for thromboembolic disease. However, we will start with venous Dopplers of lower extremities and once COVID ruled out, we may do either V/Q scan versus CTA chest based on renal function and if cardiac etiology ruled out. 2. No significant tobacco history. 3. Mildly abnormal chest x-ray. 4. NSTMI RECOMMENDATIONS: 1. Discussed with the patient. At this time, I would like to ambulate him and see if he still feels dizzy. 2. Obtain venous Dopplers of lower extremities. 3. Consult Cardiology. 4. Low suspicion for COVID infection. 5. Once COVID ruled out, we will do either V/Q scan or CTA chest if no cardiac etiology for these symptoms. Discussed with RN. COLBY HAINES MD DR: IFEANYI/yasmeen JOB#: [id number] / [id number] KIRILL
--- NOTE | 2019-11-14 12:10 | PDOC ---
PROGRESS NOTES Date of Service: DATE: 11/14/19 TIME: 12:09 Subjective Subjective feels better today Objective Objective Vital Signs Date Time Temp Pulse Resp B/P (MAP) Pulse Ox O2 Delivery O2 Flow Rate FiO2 11/14/19 09:06 76 127/73 11/14/19 08:00 Room Air 2.0 11/14/19 07:00 97.1 19 96 97.1 Intake and Output 11/14/19 07:00 Intake Total 953.16 ml Output Total 900 ml Balance 53.16 ml Intake Oral 500 ml IV Total 453.16 ml Output Urine Total 900 ml Physical Exam Abdomen: Soft Heart: Regular rate Extremities: No edema General: Alert, Oriented X3, Cooperative, No acute distress HEENT: Atraumatic, Mucous membr. moist/pink MUSCULOSKELETAL: Osteoarthritic changes both hands Neuro: Normal speech, Sensation intact Psych/Mental Status: Mental status NL, Mood NL Assessment Assessment FINAL IMPRESSION: 1. Shortness of breath. 2. Diabetes. 3. Rule out silent myocardial infarction. 4. Some other symptoms of COVID. 5. Hypertension. 6. Hyperlipidemia. PLAN: Troponin positive 3.0 cxr -ve cardiac cath today or [id number] covid test pending Lovenox for now At this time, the patient is admitted to the hospital. COVID test. Serial cardiac enzymes, EKG, echocardiogram, Cardiology consult, probably a stress test down the road and see how he does. Comment Review of Relevant I have reviewed the following items erum (where applicable) has been applied. Labs Laboratory Tests Test 11/13/19 13:35 11/13/19 15:30 11/13/19 19:47 11/13/19 22:22 White Blood Count 7.0 x10^3/uL (4.0-11.0) Red Blood Count 3.62 x10^6/uL (4.30-5.70) Hemoglobin 10.2 g/dL (13.0-17.5) Hematocrit 30.8 % (39.0-53.0) Mean Corpuscular Volume 85 fL (79-100) Mean Corpuscular Hemoglobin 28 pg (25-35) Mean Corpuscular Hemoglobin Concent 33 g/dL (31-37) Red Cell Distribution Width 13.8 % (11.5-14.5) Platelet Count 163 x10^3/uL (140-400) Sodium Level 139 mmol/L (136-145) Potassium Level 4.6 mmol/L (3.5-5.1) Chloride Level 105 mmol/L (98-107) Carbon Dioxide Level 25 mmol/L (21-32) Anion Gap 9 (6-14) Blood Urea Nitrogen 17 mg/dL (8-26) Creatinine 1.4 mg/dL (0.7-1.3) Estimated GFR (Cockcroft-Gault) 49.7 BUN/Creatinine Ratio 12 (6-20) Glucose Level 263 mg/dL (70-99) Calcium Level 9.3 mg/dL (8.5-10.1) Total Bilirubin 1.2 mg/dL (0.2-1.0) Aspartate Amino Transf (AST/SGOT) 27 U/L (15-37) Alanine Aminotransferase (ALT/SGPT) 43 U/L (16-63) Alkaline Phosphatase 83 U/L (46-116) Troponin I Quantitative 1.809 ng/mL (0.000-0.055) 2.951 ng/mL (0.000-0.055) Total Protein 7.5 g/dL (6.4-8.2) Albumin 3.4 g/dL (3.4-5.0) Albumin/Globulin Ratio 0.8 (1.0-1.7) Thyroid Stimulating Hormone (TSH) 1.464 uIU/mL (0.358-3.74) Glucose (Fingerstick) 228 mg/dL (70-99) 172 mg/dL (70-99) Test 11/14/19 00:57 11/14/19 05:30 11/14/19 08:17 White Blood Count 5.0 x10^3/uL (4.0-11.0) Red Blood Count 3.36 x10^6/uL (4.30-5.70) Hemoglobin 9.3 g/dL (13.0-17.5) Hematocrit 28.4 % (39.0-53.0) Mean Corpuscular Volume 85 fL (79-100) Mean Corpuscular Hemoglobin 28 pg (25-35) Mean Corpuscular Hemoglobin Concent 33 g/dL (31-37) Red Cell Distribution Width 13.9 % (11.5-14.5) Platelet Count 149 x10^3/uL (140-400) Neutrophils (%) (Auto) 60 % (31-73) Lymphocytes (%) (Auto) 25 % (24-48) Monocytes (%) (Auto) 10 % (0-9) Eosinophils (%) (Auto) 4 % (0-3) Basophils (%) (Auto) 1 % (0-3) Neutrophils # (Auto) 3.0 x10^3/uL (1.8-7.7) Lymphocytes # (Auto) 1.2 x10^3/uL (1.0-4.8) Monocytes # (Auto) 0.5 x10^3/uL (0.0-1.1) Eosinophils # (Auto) 0.2 x10^3/uL (0.0-0.7) Basophils # (Auto) 0.1 x10^3/uL (0.0-0.2) Sodium Level 139 mmol/L (136-145) Potassium Level 3.7 mmol/L (3.5-5.1) Chloride Level 105 mmol/L (98-107) Carbon Dioxide Level 25 mmol/L (21-32) Anion Gap 9 (6-14) Blood Urea Nitrogen 18 mg/dL (8-26) Creatinine 1.4 mg/dL (0.7-1.3) Estimated GFR (Cockcroft-Gault) 49.7 Glucose Level 214 mg/dL (70-99) Calcium Level 8.6 mg/dL (8.5-10.1) Troponin I Quantitative 2.988 ng/mL (0.000-0.055) 2.992 ng/mL (0.000-0.055) Thyroid Stimulating Hormone (TSH) 1.971 uIU/mL (0.358-3.74) D-Dimer (Heidy) 0.55 ug/mlFEU (0.00-0.50) Triglycerides Level 101 mg/dL (0-150) Cholesterol Level 154 mg/dL (0-200) LDL Cholesterol, Calculated 107 mg/dL (0-100) VLDL Cholesterol, Calculated 20 mg/dL (0-40) Non-HDL Cholesterol Calculated 127 mg/dL (0-129) HDL Cholesterol 27 mg/dL (40-60) Cholesterol/HDL Ratio 5.7 Glucose (Fingerstick) 172 mg/dL (70-99) Medications Current Medications Acetaminophen (Tylenol) 325 mg PRN BID PRN PO pain or fever; Start 11/13/19 at 14:30 Aspirin (Robb Aspirin) 325 mg 1X ONCE PO Last administered on 11/13/19 16:00; Start 11/13/19 at 14:30; Stop 11/13/19 at 14:31; Status DC Aspirin (Ecotrin) 81 mg DAILY PO Last administered on 11/14/19 09:05; Start 11/13/19 at 15:00 Atorvastatin Calcium (Lipitor) 5 mg QHS PO Last administered on 11/13/19at 22:52; Start 11/13/19 at 21:00 Cyclobenzaprine HCl (Flexeril) 10 mg DAILY PO Last administered on 11/14/19 09:06; Start 11/13/19 at 15:00 Dextrose (Dextrose 50%-Water Syringe) 12.5 gm PRN Q15MIN PRN IV SEE COMMENTS; Start 11/13/19 at 13:15 Enoxaparin Sodium (Lovenox 100mg Syringe) 100 mg Q12HR SQ Last administered on 11/14/19at 05:23; Start 11/14/19 at 05:00 Enoxaparin Sodium (Lovenox 120mg Syringe) 110 mg 1X ONCE SQ Last administered on 11/13/19at 17:35; Start 11/13/19 at 16:30; Stop 11/13/19 at 16:31; Status DC Insulin Glargine (Lantus Syringe) 38 unit BID SQ Last administered on 11/14/19at 09:07; Start 11/13/19 at 21:00 Insulin Glargine (Lantus Syringe) 92 unit QHS SQ ; Start 11/13/19 at 21:00; Stop 11/13/19 at 14:54; Status DC Insulin Human Lispro (HumaLOG) 0-5 UNITS TIDWMEALS SQ ; Start 11/13/19 at 14:00; Stop 11/13/19 at 14:29; Status DC Insulin Human Lispro (HumaLOG) 0-7 UNITS TIDWMEALS SQ Last administered on 11/13/19at 17:34; Start 11/13/19 at 17:00 Linagliptin (Tradjenta) 5 mg DAILY PO Last administered on 11/14/19at 09:05; Start 11/13/19 at 15:00 Losartan Potassium (Cozaar) 50 mg DAILY PO Last administered on 11/14/19at 09:06; Start 11/13/19 at 15:00 Meclizine HCl (Antivert) 25 mg PRN Q6HRS PRN PO dizziness; Start 11/13/19 at 14:30 Non-Formulary Medication (Zoster Vaccine Live/Pf (Zostavax Vial)) 10 unit DAILYWBKFT SQ ; Start 11/14/19 at 08:00; Status UNV Sodium Chloride 1,000 ml @ 50 mls/hr Q20H IV Last administered on 11/13/19at 19:21; Start 11/13/19 at 18:30 Tamsulosin HCl (Flomax) 0.4 mg DAILY PO Last administered on 11/14/19at 09:05; Start 11/13/19 at 15:00 Vitals/I & O Vital Sign - Last 24 Hours 11/13/19 11/13/19 11/13/19 11/13/19 13:56 15:05 15:18 16:00 Temp 98.6 98.7 98.6 98.7 Pulse 78 82 82 Resp 22 22 B/P (MAP) 152/67 (95) 146/81 (102) 146/81 Pulse Ox 95 89 O2 Delivery Room Air Room Air Room Air 11/13/19 11/13/19 11/13/19 11/14/19 19:00 20:20 23:00 03:41 Temp 97.5 98.0 96.3 97.5 98.0 96.3 Pulse 68 73 69 Resp 16 16 16 B/P (MAP) 111/53 (72) 135/65 (88) 123/65 (84) Pulse Ox 97 93 97 O2 Delivery Room Air Room Air Room Air Room Air 11/14/19 11/14/19 11/14/19 07:00 08:00 09:06 Temp 97.1 97.1 Pulse 76 76 Resp 19 B/P (MAP) 127/73 (91) 127/73 Pulse Ox 96 O2 Delivery Room Air Room Air O2 Flow Rate 2.0 Intake and Output 11/13/19 11/13/19 11/14/19 15:00 23:00 07:00 Intake Total 0 ml 953.16 ml Output Total 550 ml 350 ml Balance -550 ml 603.16 ml KEARA HINSON MD Nov 14, 2019 12:10
--- NOTE | 2019-11-14 12:50 | RAD ---
INDICATION: Reason: leg pain COMPARISON: None. TECHNIQUE: Grayscale, color and doppler ultrasound images were obtained of the bilateral lower extremity venous vasculature. RIGHT: No thrombus identified in the common femoral vein, femoral vein, popliteal vein or visualized calf veins. LEFT: No thrombus identified in the common femoral vein, femoral vein, popliteal vein or visualized calf veins. IMPRESSION: * No thrombus identified in deep venous system of bilateral lower extremities. Electronically signed by: Evan Rutherford MD (11/14/2019 12:48 PM) [id number]
[2019-11-14] MEDS ORDERED: LIDOCAINE 1% Multi-Dose 20 ML VIAL. ONE (12:54)
[2019-11-14] MEDS ORDERED: HEPARIN for ARTERIAL LINE 1,500 ML ONE (12:54)
[2019-11-14] MEDS ORDERED: IODIXANOL 320 MG/ML 100 ML VIAL. ONE (12:54)
[2019-11-14] MEDS ORDERED: fentaNYL PF VIAL 100 MCG/2 ML VIAL ONE (13:12)
[2019-11-14] MEDS ORDERED: MIDAZOLAM HCL/PF 2 MG/2 ML VIAL. ONE (13:12)
[2019-11-14] MEDS ORDERED: CONTRAST GIVEN. MC PRN (13:30)
[2019-11-14] MEDS ORDERED: MIDAZOLAM HCL/PF 2 MG/2 ML VIAL. IV ONE (13:30)
[2019-11-14] MEDS ORDERED: IODIXANOL 320 MG/ML 100 ML VIAL. IART ONE (13:30)
[2019-11-14] MEDS ORDERED: fentaNYL PF VIAL 100 MCG/2 ML VIAL IV ONE (13:30)
[2019-11-14] MEDS ORDERED: LIDOCAINE 1% Multi-Dose 20 ML VIAL. INJ ONE (13:30)
--- NOTE | 2019-11-14 13:42 | PDOC ---
MODERATE SEDATION ASSESSMENT RISKS/ALTERNATIVES Risks/Alternatives Risks and alternatives of this type of sedation and procedure discussed with: RISK/ALTERNATIVES: Patient H & P ON CHART H & P H & P on chart and reviewed for co-morbid conditions and appropriate labs. H&P ON CHART: Yes STATUS PREG STATUS ASSESSED: N/A MEDS/ALLERGIES REVIEWED Meds/Allergies Reviewed Medications and Allergies including time and route of recently administered narcotics and sedatives. MEDS/ALLERGIES REVIEWED: Yes ASA RATING ASA RATING: II AIRWAY ASSESSMENT Airway Assessment Airway patency, oral function limitations, presence of caps, crowns, dentures, partials, and ability to extend neck assessed. AIRWAY ASSESSMENT: Yes MALLAMPATI SCORE MALLAMPATI SCORE: II PRE-SEDATION ASSESSMENT PRE-SEDATION ASSESSMENT: Yes AMIRA OWEN MD Nov 14, 2019 13:42
[2019-11-14] MEDS: IV NORMAL SALINE 1000ML BAG 1,000 ML IV SCH (14:30)
--- NOTE | 2019-11-14 14:32 | PDOC ---
CARDIO Progress Notes Date and Time Date of Service 11/14/2019 Time of Evaluation 1210 Subjective Subjective: No Chest Pain, No shortness of breath, No Palpitations Vitals Vitals Vital Signs Date Time Temp Pulse Resp B/P (MAP) Pulse Ox O2 Delivery O2 Flow Rate FiO2 11/14/19 13:30 16 100 NonRebreather Mask 11/14/19 11:00 97.3 71 143/67 (92) 97.3 11/14/19 08:00 2.0 Weight Weight [ ] Input and Output Intake and Output Intake and Output 11/14/19 07:00 Intake Total 953.16 ml Output Total 900 ml Balance 53.16 ml Intake Oral 500 ml IV Total 453.16 ml Output Urine Total 900 ml Laboratory Labs Laboratory Tests Test 11/13/19 15:30 11/13/19 19:47 11/13/19 22:22 11/14/19 00:57 Glucose (Fingerstick) 228 mg/dL (70-99) 172 mg/dL (70-99) Troponin I Quantitative 2.951 ng/mL (0.000-0.055) 2.988 ng/mL (0.000-0.055) White Blood Count 5.0 x10^3/uL (4.0-11.0) Red Blood Count 3.36 x10^6/uL (4.30-5.70) Hemoglobin 9.3 g/dL (13.0-17.5) Hematocrit 28.4 % (39.0-53.0) Mean Corpuscular Volume 85 fL (79-100) Mean Corpuscular Hemoglobin 28 pg (25-35) Mean Corpuscular Hemoglobin Concent 33 g/dL (31-37) Red Cell Distribution Width 13.9 % (11.5-14.5) Platelet Count 149 x10^3/uL (140-400) Neutrophils (%) (Auto) 60 % (31-73) Lymphocytes (%) (Auto) 25 % (24-48) Monocytes (%) (Auto) 10 % (0-9) Eosinophils (%) (Auto) 4 % (0-3) Basophils (%) (Auto) 1 % (0-3) Neutrophils # (Auto) 3.0 x10^3/uL (1.8-7.7) Lymphocytes # (Auto) 1.2 x10^3/uL (1.0-4.8) Monocytes # (Auto) 0.5 x10^3/uL (0.0-1.1) Eosinophils # (Auto) 0.2 x10^3/uL (0.0-0.7) Basophils # (Auto) 0.1 x10^3/uL (0.0-0.2) Sodium Level 139 mmol/L (136-145) Potassium Level 3.7 mmol/L (3.5-5.1) Chloride Level 105 mmol/L (98-107) Carbon Dioxide Level 25 mmol/L (21-32) Anion Gap 9 (6-14) Blood Urea Nitrogen 18 mg/dL (8-26) Creatinine 1.4 mg/dL (0.7-1.3) Estimated GFR (Cockcroft-Gault) 49.7 Glucose Level 214 mg/dL (70-99) Calcium Level 8.6 mg/dL (8.5-10.1) Thyroid Stimulating Hormone (TSH) 1.971 uIU/mL (0.358-3.74) Test 11/14/19 05:30 11/14/19 08:17 11/14/19 11:50 11/14/19 12:57 D-Dimer (Heidy) 0.55 ug/mlFEU (0.00-0.50) Troponin I Quantitative 2.992 ng/mL (0.000-0.055) Triglycerides Level 101 mg/dL (0-150) Cholesterol Level 154 mg/dL (0-200) LDL Cholesterol, Calculated 107 mg/dL (0-100) VLDL Cholesterol, Calculated 20 mg/dL (0-40) Non-HDL Cholesterol Calculated 127 mg/dL (0-129) HDL Cholesterol 27 mg/dL (40-60) Cholesterol/HDL Ratio 5.7 Glucose (Fingerstick) 172 mg/dL (70-99) 124 mg/dL (70-99) SARS-CoV-2 Antigen (Rapid) Negative (NEGATIVE) Physical Exam HEENT: Neck Supple W Full Motion Chest: Symmetric LUNGS: Other (dminished) Heart: RRR (SR) Abdomen: Soft N/T, Other (obese) Extremities: No Calf Tenderness Neurology: alert, oriented, follow commands Assessment Assessment 1. NSTEMI: Suspect ACS 2. HTN: controlled 3. HLP 4. DM2 5. Likely CKD3 Recommendations 1. C discussed, risks and benefits, agreeable to proceed. Covid-19 test pending 2. TTE 3. Secondary prevention measures ASA received lovenox yesterday. lipitor. Start on low dose BB Justicifation of Admission Dx: Justifications for Admission: Justification of Admission Dx: Yes NESS TOTH APRN Nov 14, 2019 14:32
[2019-11-14] MEDS ORDERED: IV NORMAL SALINE 1000ML BAG 1,000 ML IV SCH (14:33)
[2019-11-14] MEDS ORDERED: 0.9 % SODIUM CHLORIDE 10 ML DISP.SYRIN. IV PRN (14:45)
[2019-11-14] MEDS ORDERED: NITROGLYCERIN SUBLINGUAL 0.4 MG BOTTLE OF 25. SL PRN (14:45)
[2019-11-14] MEDS ORDERED: ANTI-COAG MONITOR BY PHARMACY. MC PRN (16:00)
--- NOTE | 2019-11-14 17:26 | CARD ---
MR#: [id number] Date of Study: 11/14/2019 Ordering Physician: AMIRA MOORE, Referring Physician: AMIRA MOORE, [place]dee: [place] VARMA RTR APPROVED REPORT Procedures Left heart catheterization Left ventriculogram Selective coronary angiogram The patient is a 73-year-old male who was admitted with episodes of lightheadedness and a history of diabetes and hypertension. Troponin elevated to approximately 3.0. We reviewed the patient's option s and have recommended cardiac catheterization for non-ST elevated myocardial infarction. Risks and benefits were discussed with the patient and he agreed to proceed. After informed consent was obtained the patient was brought to the heart catheterization lab. The ar ea of the right femoral artery was prepared in usual manner with Betadine, sterile draping and local anesthetic. An 18-gauge needle was used to enter the right femoral artery, a wire placed and a 6 Mauro mih sheath placed over the wire. With the assistance of a J-wire during the case, a 6 Serbian JL4 michelle gnostic catheter was used to engage the left coronary system and sequential injections of various vie ws were obtained. A 6 Serbian Kodi right diagnostic catheter was used to engage to the right noe nary artery and sequential injections in various views were obtained. A pigtail catheter advanced to the ascending aorta and then the left ventricle. Pressures were obtained. A 30 degree BASURTO left maninder triculogram was performed. Pullback pressures were measured. The catheter was removed from the roxie ent. An injection of the sheath showed normal placement. The sheath was removed and sealed with an Angio-Seal product. There were no immediate complications. Findings. Hemodynamics. LV pressure of 132/12, 24. Aortic root pressure of 130/68. Coronaries. Left main. The left main was a moderate size vessel with no lesions. Left anterior descending. The LAD was relatively small and very diffusely diseased vessel. It had l esions in the moderate to moderately severe range at multiple points throughout its course. Left circumflex. The left circumflex was also a small vessel with diffuse disease. The greatest les ion was a mid lesion in the 95% range. Right coronary artery. In its proximal to midportion of the right coronary was a moderate size vesse l with tapered down to a very small diffusely diseased distal vessel. Additionally it had a proximal 50% lesion. Left ventriculogram. The left ventricle had a proximal inferior area of severe hypokinesis. The rest of the ventricle mov ed reasonably well. Ejection fraction was 40 to 45%. <Conclusion> Diffuse multivessel coronary disease with diffusely diseased small vessels. Mildly decreased LV systolic function as above. Signed by : Amira Moore MD Electronically Approved : 11/14/2019 17:26:39
[2019-11-14] MEDS: METOPROLOL TART IMMED RELEASE 25 MG TABLET. PO SCH (20:54)
[2019-11-14] MEDS ORDERED: ATORVASTATIN CALCIUM 10 MG TABLET. PO SCH (21:00)
[2019-11-15 02:08] LABS: HEMOGLOBIN A1C 9.1 % (4.8-5.6)
[2019-11-15] MEDS: IV NORMAL SALINE 1000ML BAG 1,000 ML IV SCH (02:43)
[2019-11-15 02:57] VITALS: BP 145/63
[2019-11-15 07:00] VITALS: BP 138/65
[2019-11-15] MEDS: INSULIN LISPRO 300 UNITS/3 ML VIAL. SQ SCH ×2 (08:00→12:00)
[2019-11-15] MEDS: ASPIRIN ENTERIC COATED 81 MG TABLET.DR. PO SCH (08:26)
[2019-11-15] MEDS: LOSARTAN POTASSIUM 50 MG TABLET. PO SCH (08:26)
[2019-11-15] MEDS: TAMSULOSIN 0.4 MG CAP.ER.24H. PO SCH (08:26)
[2019-11-15] MEDS: LINAGLIPTIN 5 MG TABLET PO SCH (08:26)
[2019-11-15] MEDS: CYCLOBENZAPRINE 10 MG TABLET. PO SCH (08:26)
[2019-11-15] MEDS: METOPROLOL TART IMMED RELEASE 25 MG TABLET. PO SCH (08:27)
--- NOTE | 2019-11-15 08:41 | PDOC ---
PROGRESS NOTES Date of Service: DATE: 11/15/19 TIME: 08:40 Subjective Subjective FEELS BETTER TODAY Objective Objective Vital Signs Date Time Temp Pulse Resp B/P (MAP) Pulse Ox O2 Delivery O2 Flow Rate FiO2 11/15/19 08:27 64 138/65 11/15/19 07:00 98.2 20 99 Room Air 98.2 11/14/19 20:00 2.0 Intake and Output 11/15/19 07:00 Intake Total 1170 ml Output Total 700 ml Balance 470 ml Intake Oral 570 ml Other 600 ml Output Urine Total 700 ml Physical Exam Abdomen: Soft Heart: Regular rate Extremities: No edema General: Alert, Oriented X3, Cooperative, No acute distress HEENT: Atraumatic, Mucous membr. moist/pink MUSCULOSKELETAL: Osteoarthritic changes both hands Neuro: Normal speech, Sensation intact Psych/Mental Status: Mental status NL, Mood NL Assessment Assessment FINAL IMPRESSION: 1. Shortness of breath. 2. Diabetes. 3. Rule out silent myocardial infarction. 4. Some other symptoms of COVID. 5. Hypertension. 6. Hyperlipidemia. PLAN: medical management 3 vessel diffuse CAD on cardiac cath. d/c home later today. labs ok. Troponin positive 3.0 cxr -ve cardiac cath today or [id number] covid test pending Lovenox for now At this time, the patient is admitted to the hospital. COVID test. Serial cardiac enzymes, EKG, echocardiogram, Cardiology consult, probably a stress test down the road and see how he does. Comment Review of Relevant I have reviewed the following items erum (where applicable) has been applied. Labs Laboratory Tests Test 11/14/19 11:50 11/14/19 12:57 11/14/19 17:12 11/14/19 20:51 SARS-CoV-2 Antigen (Rapid) Negative (NEGATIVE) Glucose (Fingerstick) 124 mg/dL (70-99) 101 mg/dL (70-99) 146 mg/dL (70-99) Medications Current Medications Atorvastatin Calcium (Lipitor) 40 mg QHS PO Last administered on 11/14/19at 20:52; Start 11/14/19 at 21:00 Fentanyl Citrate (Fentanyl 2ml Vial) 100 mcg 1X ONCE IV Last administered on 11/14/19at 13:30; Start 11/14/19 at 13:30; Stop 11/14/19 at 13:31; Status DC Fentanyl Citrate (Fentanyl 2ml Vial) 100 mcg STK-MED ONCE .ROUTE ; Start 11/14/19 at 13:12; Stop 11/14/19 at 13:12; Status DC Heparin Sodium/ Sodium Chloride 1,500 ml @ As Directed STK-MED ONCE .ROUTE ; Start 11/14/19 at 12:54; Stop 11/14/19 at 12:54; Status DC Heparin Sodium/ Sodium Chloride (HEPARIN for ARTERIAL LINE FLUSH) 1,000 unit 1X ONCE IART Last administered on 11/14/19at 13:30; Start 11/14/19 at 13:30; Stop 11/14/19 at 13:31; Status DC Heparin Sodium/ Sodium Chloride (HEPARIN for ARTERIAL LINE FLUSH) 1,000 unit 1X ONCE IART Last administered on 11/14/19at 13:30; Start 11/14/19 at 13:30; Stop 11/14/19 at 13:31; Status DC Info (Anti-Coagulation Monitoring By Pharmacy) 1 each PRN DAILY PRN [facility] SEE COMMENTS; Start 11/14/19 at 16:00 Info (CONTRAST GIVEN -- Rx MONITORING) 1 each PRN DAILY PRN [facility] SEE COMMENTS; Start 11/14/19 at 13:30; Stop 11/16/19 at 13:29 Iodixanol (Visipaque 320) 100 ml 1X ONCE IART Last administered on 11/14/19at 13:30; Start 11/14/19 at 13:30; Stop 11/14/19 at 13:31; Status DC Iodixanol (Visipaque 320) 100 ml STK-MED ONCE .ROUTE ; Start 11/14/19 at 12:54; Stop 11/14/19 at 12:54; Status DC Lidocaine HCl (Lidocaine 1% 20ml Vial) 20 ml 1X ONCE INJ Last administered on 11/14/19at 13:30; Start 11/14/19 at 13:30; Stop 11/14/19 at 13:31; Status DC Lidocaine HCl (Lidocaine 1% 20ml Vial) 20 ml STK-MED ONCE .ROUTE ; Start at 12:54; Stop 11/14/19 at 12:54; Status DC Metoprolol Tartrate (Lopressor) 12.5 mg BID PO Last administered on 11/15/19at 08:27; Start 11/14/19 at 21:00 Midazolam HCl (Versed) 2 mg 1X ONCE IV Last administered on 11/14/19at 13:30; Start 11/14/19 at 13:30; Stop 11/14/19 at 13:31; Status DC Midazolam HCl (Versed) 2 mg STK-MED ONCE .ROUTE ; Start 11/14/19 at 13:12; Stop 11/14/19 at 13:12; Status DC Nitroglycerin (Nitrostat) 0.4 mg PRN Q5MIN PRN SL CHEST PAIN; Start 11/14/19 at 14:45 Sodium Chloride 1,000 ml @ 60 mls/hr [id number] IV ; Start 11/14/19 at 14:33; Stop 11/14/19 at 15:16; Status DC Sodium Chloride (Normal Saline Flush) 3 ml QSHIFT PRN IV AFTER MEDS AND BLOOD DRAWS; Start 11/14/19 at 14:45 Vitals/I & O Vital Sign - Last 24 Hours 11/14/19 11/14/19 11/14/19 11/14/19 09:06 11:00 13:30 14:31 Temp 97.3 97.3 Pulse 76 71 73 Resp 19 16 22 B/P (MAP) 127/73 143/67 (92) Pulse Ox 100 100 O2 Delivery Room Air NonRebreather Mask NonRebreather Mask O2 Flow Rate 10.0 11/14/19 11/14/19 11/14/19 11/14/19 14:42 14:42 14:57 15:00 Temp 97.7 97.7 Pulse 84 Resp 19 B/P (MAP) 141/74 (96) 108/59 (75) Pulse Ox 100 99 96 O2 Delivery Nasal Cannula Nasal Cannula Room Air O2 Flow Rate 2.0 2.0 11/14/19 11/14/19 11/14/19 11/14/19 15:12 15:27 16:00 16:06 Temp 98.0 98.0 Pulse 70 72 Resp 18 18 20 B/P (MAP) 130/84 (99) 130/84 (99) Pulse Ox 100 99 96 O2 Delivery Nasal Cannula Nasal Cannula Nasal Cannula O2 Flow Rate 2.0 2.0 2.0 11/14/19 11/14/19 11/14/19 11/14/19 16:21 16:51 17:06 17:36 Pulse 68 68 68 69 B/P (MAP) 137/63 (87) 129/63 (85) 137/63 (87) 127/60 (82) Pulse Ox 100 100 O2 Delivery Room Air Room Air 11/14/19 11/14/19 11/14/19 11/14/19 17:47 18:06 18:36 19:06 Pulse 78 74 72 B/P (MAP) 136/66 (89) 132/60 (84) 114/57 (76) Pulse Ox 99 99 95 O2 Delivery Room Air Room Air Room Air Room Air O2 Flow Rate 2.0 11/14/19 11/14/19 11/14/19 11/15/19 20:00 20:54 23:16 02:57 Temp 97.9 98.0 97.9 98.0 Pulse 73 75 70 Resp 20 20 B/P (MAP) 121/56 144/67 (92) 145/63 (90) Pulse Ox 95 98 O2 Delivery Room Air Room Air Room Air O2 Flow Rate 2.0 11/15/19 11/15/19 11/15/19 07:00 08:26 08:27 Temp 98.2 98.2 Pulse 64 64 64 Resp 20 B/P (MAP) 138/65 (89) 138/65 138/65 Pulse Ox 99 O2 Delivery Room Air Intake and Output 11/14/19 11/14/19 11/15/19 15:00 23:00 07:00 Intake Total 0 ml 520 ml 650 ml Output Total 500 ml 200 ml Balance -500 ml 520 ml 450 ml KEARA HINSON MD Nov 15, 2019 08:41
[2019-11-15] MEDS ORDERED: NITR0.4T24 SL (08:45)
[2019-11-15] MEDS ORDERED: METO25TA4 PO (08:45)
[2019-11-15] MEDS ORDERED: SULFACETAMIDE 10% OPHTH SOLUTION 15ML BOTTLE. OD ONE (09:00)
[2019-11-15] MEDS: INSULIN GLARGINE SYRINGE. SQ SCH (09:47)
--- NOTE | 2019-11-15 10:34 | PDOC ---
PULMONARY PROGRESS NOTES DATE: 11/15/19 TIME: 10:31 Subjective no soa Vitals Vital Signs Date Time Temp Pulse Resp B/P (MAP) Pulse Ox O2 Delivery O2 Flow Rate FiO2 11/15/19 08:27 64 138/65 11/15/19 07:00 98.2 20 99 Room Air 98.2 11/14/19 20:00 2.0 General: Alert, No acute distress Lungs: Clear Cardiovascular: S1 Abdomen: Soft Neuro Exam: Alert Extremities: No Edema Skin: Warm Labs Laboratory Tests Test 11/13/19 13:35 11/13/19 13:50 11/13/19 15:30 11/13/19 19:47 White Blood Count 7.0 x10^3/uL (4.0-11.0) Red Blood Count 3.62 x10^6/uL (4.30-5.70) Hemoglobin 10.2 g/dL (13.0-17.5) Hematocrit 30.8 % (39.0-53.0) Mean Corpuscular Volume 85 fL (79-100) Mean Corpuscular Hemoglobin 28 pg (25-35) Mean Corpuscular Hemoglobin Concent 33 g/dL (31-37) Red Cell Distribution Width 13.8 % (11.5-14.5) Platelet Count 163 x10^3/uL (140-400) Sodium Level 139 mmol/L (136-145) Potassium Level 4.6 mmol/L (3.5-5.1) Chloride Level 105 mmol/L (98-107) Carbon Dioxide Level 25 mmol/L (21-32) Anion Gap 9 (6-14) Blood Urea Nitrogen 17 mg/dL (8-26) Creatinine 1.4 mg/dL (0.7-1.3) Estimated GFR (Cockcroft-Gault) 49.7 BUN/Creatinine Ratio 12 (6-20) Glucose Level 263 mg/dL (70-99) Calcium Level 9.3 mg/dL (8.5-10.1) Total Bilirubin 1.2 mg/dL (0.2-1.0) Aspartate Amino Transf (AST/SGOT) 27 U/L (15-37) Alanine Aminotransferase (ALT/SGPT) 43 U/L (16-63) Alkaline Phosphatase 83 U/L (46-116) Troponin I Quantitative 1.809 ng/mL (0.000-0.055) 2.951 ng/mL (0.000-0.055) Total Protein 7.5 g/dL (6.4-8.2) Albumin 3.4 g/dL (3.4-5.0) Albumin/Globulin Ratio 0.8 (1.0-1.7) Thyroid Stimulating Hormone (TSH) 1.464 uIU/mL (0.358-3.74) Coronavirus (PCR) Not detected (Not Detected) Glucose (Fingerstick) 228 mg/dL (70-99) Test 11/13/19 22:22 11/14/19 00:57 11/14/19 05:30 11/14/19 08:17 Glucose (Fingerstick) 172 mg/dL (70-99) 172 mg/dL (70-99) White Blood Count 5.0 x10^3/uL (4.0-11.0) Red Blood Count 3.36 x10^6/uL (4.30-5.70) Hemoglobin 9.3 g/dL (13.0-17.5) Hematocrit 28.4 % (39.0-53.0) Mean Corpuscular Volume 85 fL (79-100) Mean Corpuscular Hemoglobin 28 pg (25-35) Mean Corpuscular Hemoglobin Concent 33 g/dL (31-37) Red Cell Distribution Width 13.9 % (11.5-14.5) Platelet Count 149 x10^3/uL (140-400) Neutrophils (%) (Auto) 60 % (31-73) Lymphocytes (%) (Auto) 25 % (24-48) Monocytes (%) (Auto) 10 % (0-9) Eosinophils (%) (Auto) 4 % (0-3) Basophils (%) (Auto) 1 % (0-3) Neutrophils # (Auto) 3.0 x10^3/uL (1.8-7.7) Lymphocytes # (Auto) 1.2 x10^3/uL (1.0-4.8) Monocytes # (Auto) 0.5 x10^3/uL (0.0-1.1) Eosinophils # (Auto) 0.2 x10^3/uL (0.0-0.7) Basophils # (Auto) 0.1 x10^3/uL (0.0-0.2) Sodium Level 139 mmol/L (136-145) Potassium Level 3.7 mmol/L (3.5-5.1) Chloride Level 105 mmol/L (98-107) Carbon Dioxide Level 25 mmol/L (21-32) Anion Gap 9 (6-14) Blood Urea Nitrogen 18 mg/dL (8-26) Creatinine 1.4 mg/dL (0.7-1.3) Estimated GFR (Cockcroft-Gault) 49.7 Glucose Level 214 mg/dL (70-99) Hemoglobin A1c 9.1 % (4.8-5.6) Calcium Level 8.6 mg/dL (8.5-10.1) Troponin I Quantitative 2.988 ng/mL (0.000-0.055) 2.992 ng/mL (0.000-0.055) Thyroid Stimulating Hormone (TSH) 1.971 uIU/mL (0.358-3.74) D-Dimer (Heidy) 0.55 ug/mlFEU (0.00-0.50) Triglycerides Level 101 mg/dL (0-150) Cholesterol Level 154 mg/dL (0-200) LDL Cholesterol, Calculated 107 mg/dL (0-100) VLDL Cholesterol, Calculated 20 mg/dL (0-40) Non-HDL Cholesterol Calculated 127 mg/dL (0-129) HDL Cholesterol 27 mg/dL (40-60) Cholesterol/HDL Ratio 5.7 Test 11/14/19 11:50 11/14/19 12:57 11/14/19 17:12 11/14/19 20:51 SARS-CoV-2 Antigen (Rapid) Negative (NEGATIVE) Glucose (Fingerstick) 124 mg/dL (70-99) 101 mg/dL (70-99) 146 mg/dL (70-99) Test 11/15/19 07:17 Glucose (Fingerstick) 145 mg/dL (70-99) Laboratory Tests Test 11/14/19 11:50 11/14/19 12:57 11/14/19 17:12 11/14/19 20:51 SARS-CoV-2 Antigen (Rapid) Negative (NEGATIVE) Glucose (Fingerstick) 124 mg/dL (70-99) 101 mg/dL (70-99) 146 mg/dL (70-99) Test 11/15/19 07:17 Glucose (Fingerstick) 145 mg/dL (70-99) Medications Active Scripts Medications Dose Route/Sig Max Daily Dose Days Date Category Nitrostat (Nitroglycerin) 0.4 Mg Tab.subl 0.4 Mg SL PRN Q5MIN PRN 30 11/15/19 Rx Metoprolol Tartrate 25 Mg Tablet 12.5 Mg PO BID 30 11/15/19 Rx Novolin N (Nph, Human Insulin Isophane) 100 Unit/1 Ml Vial 38 Unit SQ BID 11/13/19 Reported Cyclobenzaprine Hcl 10 Mg Tablet 1 Tab PO DAILY 11/13/19 Reported Lovastatin 20 Mg Tablet 1 Tab PO DAILY 11/13/19 Reported Acetaminophen 325 Mg Tablet 1 Tab PO BID PRN 30 11/13/19 Reported Lantus Solostar (Insulin Glargine,Hum.rec.anlog) 100 Unit/1 Ml Insuln.pen 92 Unit SQ QHS 11/13/19 Reported Zostavax Vial (Zoster Vaccine Live/Pf) 19,400 Unit/0.65 Ml Vial 10 Unit SQ [id number] 11/13/19 Reported Januvia (Sitagliptin Phosphate) 100 Mg Tablet 1 Tab PO DAILY 11/13/19 Reported Meclizine Hcl 12.5 Mg Tablet 25 Mg PO PRN Q6HRS PRN 7 06/23/19 Rx Aspir 81 (Aspirin) 81 Mg Tablet.dr 81 Mg PO 12/29/15 Reported Metformin Hcl 1,000 Mg Tablet 1 Tab PO BID 12/29/15 Reported Tamsulosin Hcl 0.4 Mg Cap.er.24h 0.4 Mg PO DAILY 12/29/15 Reported Losartan Potassium 50 Mg Tablet 50 Mg PO DAILY 12/29/15 Reported Impression . 1. Dizziness with mild subjective dyspnea. Suspect cardiac etiology/NSTMI Currently on room air. Chest x-ray with only faint mildly prominent interstitial markings at the bases. D-dimer is only 0.5 and low suspicion for thromboembolic disease. 2. No significant tobacco history. 3. Mildly abnormal chest x-ray. 4. NSTMI Plan . 1. Discussed with the patient. s/p cath with diffuse MV CAD. no intervention. 2. Neg venous Dopplers of lower extremities. 3. Cardiology rec 4. Low suspicion for COVID infection. test Neg 5. No further pulmonary w/u. etiology of symptoms cardiac COLBY HAINES MD Nov 15, 2019 10:34
[2019-11-15 10:39] VITALS: BP 154/73
--- NOTE | 2019-11-15 11:38 | PDOC ---
ROSENDA SUAREZ BAB[employer] WORK[employer] 11/15/19 1138: CARDIO Progress Notes Date and Time Date of Service 11/15/19 Time of Evaluation 1130 Subjective Subjective: No Chest Pain, No shortness of breath, No Palpitations Vitals Vitals Vital Signs Date Time Temp Pulse Resp B/P (MAP) Pulse Ox O2 Delivery O2 Flow Rate FiO2 11/15/19 10:39 98.2 67 20 154/73 (100) 98 Room Air 98.2 11/15/19 08:00 2.0 Weight Weight [ ] Input and Output Intake and Output Intake and Output 11/15/19 07:00 Intake Total 1170 ml Output Total 700 ml Balance 470 ml Intake Oral 570 ml Other 600 ml Output Urine Total 700 ml Laboratory Labs Laboratory Tests Test 11/14/19 11:50 11/14/19 12:57 11/14/19 17:12 11/14/19 20:51 SARS-CoV-2 Antigen (Rapid) Negative (NEGATIVE) Glucose (Fingerstick) 124 mg/dL (70-99) 101 mg/dL (70-99) 146 mg/dL (70-99) Test 11/15/19 07:17 11/15/19 11:12 Glucose (Fingerstick) 145 mg/dL (70-99) 147 mg/dL (70-99) Physical Exam HEENT: Neck Supple W Full Motion Chest: Symmetric LUNGS: Other (diminished) Heart: RRR (SR) Abdomen: Soft N/T, Other (obese) Extremities: No Calf Tenderness Neurology: alert, oriented, follow commands Assessment Assessment 1. NSTEMI, ACS 2. CAD; diffuse multivessel disease with diffusely diseased small vessels. 3. Chronic systolic CHF; LVEF 45%. appears compensated 4. HTN: controlled 5. HLP 6. DM2 7. CKD Recommendations Secondary prevention measures including ASA, statin, BB, ARB. Will add Imdur and Ranexa given small vessel disease Outpatient referral for EECP Consider addition of Entresto on an outpatient basis Follow up with Dr. Martinez 12/14/19 at 1:45pm. Justicifation of Admission Dx: Justifications for Admission: Justification of Admission Dx: Yes MAULIK MARTINEZ MD 11/15/19 1524: CARDIO Progress Notes Plan Plan The patient was seen and interviewed as well as examined at the bedside. The chart was reviewed. The case was discussed. Agree with the plan of care. ROSENDA SUAREZ APRN Nov 15, 2019 11:38 MAULIK MARTINEZ MD Nov 15, 2019 15:24
[2019-11-15] MEDS ORDERED: ATOR10TA60 PO (12:08)
[2019-11-15] MEDS ORDERED: ISOS30TA4 PO (12:08)
[2019-11-15] MEDS ORDERED: RANO500T2 PO (12:08)
[2019-11-15] MEDS ORDERED: ISOSORBIDE MONONITRATE ER 30 MG TAB.ER.24H PO SCH (12:30)
[2019-11-15] MEDS ORDERED: RANOLAZINE 500 MG TAB.ER.12H PO SCH (13:00)
--- NOTE | 2019-11-15 13:36 | CARD ---
MR#: [id number] Date of Study: 11/15/2019 Ordering Physician: ROSENDA SUAREZ, Referring Physician: ROSENDA SUAREZ, Tech: Nadira Miranda APPROVED REPORT EXAM: Two-dimensional and M-mode echocardiogram with Doppler and color Doppler. Other Information Quality : FairHR: 70bpm Technically limited study due to COPD INDICATION COPD Dizziness and Vertigo Elevated Troponin RISK FACTORS Hypertension Diabetes 2D DIMENSIONS Left Atrium(2D)2.9 (1.6-4.0cm)IVSd1.5 (0.7-1.1cm) Aortic Root(2D)3.3 (2.0-3.7cm)LVDd5.3 (3.9-5.9cm) LVOT Diameter2.2 (1.8-2.4cm)PWd1.3 (0.7-1.1cm) LVDs3.1 (2.5-4.0cm)FS (%) 41.2 % SV98.8 mlLVEF(%)71.5 (>50%) Aortic Valve AoV Peak Froilan.110.7cm/sAoV VTI22.9cm AO Peak GR.4.9mmHgLVOT Peak Froilan.86.5cm/s LVOT VTI 17.42cmAO Mean GR.3mmHg AGUSTIN (VMAX)2.07ye7ALM (VTI)2.92cm2 Mitral Valve MV E Jzfcpfgr90.9cm/sMV E Peak Gr.79mmHg MV DECEL [id number] A Xnlbrcyy43.6cm/s MV E Mean Gr.2mmHgMV DGL28js E/A Ratio1.8MVA (PHT)3.94cm2 TDI E/Lateral E'10.5E/Medial E'16.2 Tricuspid Valve TR P. Wyihgory243fp/sRAP YXFIHJJY5ckVz TR Peak Gr.39msNuXLGJ37rwKw Pulmonary Vein S1 Rlqindbq42.6cm/sD2 Stvztkis75.8cm/s PVa [id number] LEFT VENTRICLE The left ventricle is normal size. There is moderate concentric left ventricular hypertrophy. Severe hypokinesis of base to mid inferior and posterior rausch The Ejection Fraction is 45%. RIGHT VENTRICLE The right ventricle is normal size. There is normal right ventricular wall thickness. The right ventr icular systolic function is normal. ATRIA The left atrium size is normal. The right atrium size is normal. The interatrial septum is intact wit h no evidence for an atrial septal defect or patent foramen ovale as noted on 2-D or Doppler imaging. AORTIC VALVE The aortic valve is normal in structure and function. Doppler and Color Flow revealed trace aortic re gurgitation. There is no significant aortic valvular stenosis. Calculated aortic valve area is 3.23 c m2 with maximum pressure gradient of 6 mmHg and mean pressure gradient of 3 mmHg. MITRAL VALVE The mitral valve is normal in structure and function. There is no evidence of mitral valve prolapse. There is no mitral valve stenosis. Doppler and Color-flow revealed trace mitral regurgitation. TRICUSPID VALVE The tricuspid valve is normal in structure and function. Doppler and Color Flow revealed trace tricus pid regurgitation with an estimated PAP of 42 mmHg. There is no tricuspid valve stenosis. PULMONIC VALVE The pulmonic valve is not well visualized. Doppler and Color Flow revealed no pulmonic valvular regur gitation. GREAT VESSELS The aortic root is normal in size. The IVC is dilated. PERICARDIAL EFFUSION There is no evidence of significant pericardial effusion. Critical Notification Critical Value: No <Conclusion> Severe hypokinesis of base to mid inferior and posterior rausch The Ejection Fraction is 45%. Trace mitral regurgitation. Trace tricuspid regurgitation with an estimated PAP of 42 mmHg. There is no evidence of significant pericardial effusion. Signed by : Nixon Fay, Electronically Approved : 11/15/2019 13:36:35
--- NOTE | 2019-11-15 14:05 | NUR ---
Discharge Note: [place],[address] Discharge instructions and discharge home medications reviewed with Patient and a copy given. All questions have been answered and understanding verbalized. The following instructions and handouts were given: post left cath dc teaching, cardiac diet and coronary vacular disease. Discontinued iv line and catheter intact. Patient discharged to home with self-care via [facility] transport.
--- NOTE | 2019-11-15 14:24 | NUR ---
SS following for discharge planning. SS reviewed pt chart and discussed with pt RN. Pt is from home with spouse and is currently on room air. COVID19 negative. Discharge order on the chart for home with self care.
[2019-11-15 14:39] VITALS: BP 117/60
--- NOTE | 2019-11-16 15:15 | PDOC ---
Provider Note Provider Note Discharge summary dictated.#[id number]. Justifications for Admission Other Justification KEARA HINSON MD Nov 16, 2019 15:15
--- NOTE | 2019-11-16 20:50 | DS ---
DATE OF DISCHARGE: 11/15/2019 REASON FOR ADMISSION TO THE HOSPITAL: Shortness of breath, non-STEMI. The patient is a diabetic. CONSULTATION: Cardiology. PROCEDURES DONE: Echocardiogram and cardiac catheterization. HOSPITAL COURSE: The patient is a 73-year-old male with history of diabetes. [place] with his , who is in wheelchair. He said has been pushing her at the [place]. He went for the 3-day weekend. After he came, he was complaining of shortness of breath, tired and the patient was admitted to the hospital. His troponin went up to 3.0. COVID test was negative. The patient had echocardiogram show a 45% ejection fraction, PA pressure was 42. The patient was taken to cardiac cath and it shows diffuse multivessel coronary artery disease with diffuse small vessel disease and recommended medical management. The patient was seen by Pulmonology and had a venous Doppler that was negative. FINAL DIAGNOSES: 1. Shortness of breath secondary to silent NH, non-STEMI. Cardiac catheterization shows 3-vessel disease. 2. Medical management for diffuse small vessel disease. 3. Systolic heart failure, ejection fraction 40-45%. 4. Diabetes, insulin-dependent. 5. Hypertension. 6. Hyperlipidemia. DISPOSITION: Home. Medical management. DISCHARGE MEDICATIONS: See MRAD for discharge medications. KEARA HINSON MD DR: ADDY/yasmeen JOB#: [id number] / [id number]
== END 2019-11-15 14:40 | disposition home or self-care (01) | DRG 280 ==
LOC: 6 SOUTH 11:54 → 2 SOUTH 11-14 16:08
PROVIDERS: ADMIT Internal Medicine; ATTEND Internal Medicine
PROC: B2111ZZ Fluoroscopy of Multiple Coronary Arteries using Low Osmolar Contrast (ICD-10-PCS; principal; 2019-11-14)
PROC: B2151ZZ Fluoroscopy of Left Heart using Low Osmolar Contrast (ICD-10-PCS; 2019-11-14)
PROC: 4A023N7 Measurement of Cardiac Sampling and Pressure, Left Heart, Percutaneous Approach (ICD-10-PCS; 2019-11-14)
DX: I21.4 Non-ST elevation (NSTEMI) myocardial infarction (principal); I50.43 Acute on chronic combined systolic (congestive) and diastolic (congestive) heart failure; I13.0 Hypertensive heart and chronic kidney disease with heart failure and stage 1 through stage 4 chronic kidney disease, or unspecified chronic kidney disease; N18.3 Chronic kidney disease, stage 3 (moderate); E11.22 Type 2 diabetes mellitus with diabetic chronic kidney disease; E78.5 Hyperlipidemia, unspecified; I25.10 Atherosclerotic heart disease of native coronary artery without angina pectoris; Z79.4 Long term (current) use of insulin; Z82.49 Family history of ischemic heart disease and other diseases of the circulatory system; Z83.3 Family history of diabetes mellitus; Z90.49 Acquired absence of other specified parts of digestive tract; Z03.818 Encounter for observation for suspected exposure to other biological agents ruled out
CPT/HCPCS: 36415; 71045; 80048; 80053; 80061; 82962; 83036; 84443; 84484; 85025; 85027; 85379; 87426; 93005; 93306; 93458; 93970; 99152; 99153; C1760; C1769; C1892; G0269; J1644; J1650; J1815; J2250; J3010; J3490; J7030; Q9967; C1771; G0378; U0003-CS